=== PATIENT | female | born 1990 | race Caucasian/White ===

== ENCOUNTER → 2017-09-28 10:00 | Outpatient (CLI) | payer SELFPAY ==
[2017-09-28 11:02] LABS: Basophils % 0.1 % (0.1-2.0); Eosinophils # 0.2 K/mm3 (0.0-0.4); Hematocrit 33.2 % (37.0-47.0); Hemoglobin 11.1 g/dL (12.2-16.2); Lymphocytes # 1.3 K/mm3 (0.7-4.5); Lymphocytes % 16.1 K/mm3 (10-50); Mean Corpuscular HGB Conc 33.5 g/dL (31.8-35.4); Mean Corpuscular Hemoglobin 29.7 pg (27.0-31.2); Mean Corpuscular Volume 88.6 fl (81-99); Mean Platelet Volume 8.5 fl (7.4-10.4); Monocytes # 0.3 K/mm3 (0.1-1.0); Monocytes % 3.8 % (1.7-9.3); Neutrophils # 6.3 K/mm3 (1.8-7.8); Neutrophils % 78.1 % (37.0-80.0); Platelet Count 242 K/mm3 (142-424); Red Blood Count 3.75 M/mm3 (4.20-5.40); Red Cell Distribution Width 12.3 % (11.5-17.5); White Blood Count 8.1 K/mm3 (4.8-10.8)
[2017-09-29 08:28] LABS: HIV Screen 4th Generation wRfx Non Reactive (Non Reactive)
[2017-09-29 15:23] LABS: Hepatitis B Surface Antigen Negative (Negative); Hepatitis C Antibody <0.1 s/co ratio (0.0-0.9); Rapid Plasma Reagin Ab Titer Non Reactive (NonRea<1:1); Rubella Antibodies, IgG 3.85 index (Immune >0.99)
== END ==
PROVIDERS: PCP Nurse Practitioner Obstetrics & Gynecology; Visit Provider Nurse Practitioner Obstetrics & Gynecology
DX: Z34.90 Encounter for supervision of normal pregnancy, unspecified, unspecified trimester (principal)
CPT/HCPCS: 36415; 85025; 86592; 86703; 86762; 86850; 87340; 87380; G0432

== ENCOUNTER → 2017-10-02 13:19 | Outpatient (CLI) | payer MEDICAID, SELFPAY ==
--- NOTE | 2017-10-02 13:20 | US_ITS ---
US OB transvaginal HISTORY: ITS.REASON: US OB Dates ORDERING PHYSICIAN: Ede Vale MD PATIENT AGE: 27 years COMPARISON: None FINDINGS: An intrauterine gestational sac is present with a pole with a crown-rump length of 4.15 cm correlating to gestational age of 11w1d. heart tones are present with an FHR of 151 bpm's. Yolk sac is noted. The amnion and chorion have not yet fused. The placenta is anterior Adnexa: Unremarkable. IMPRESSION: Live intrauterine gestation at 11 weeks 1 day as described above. Estimated due date by ultrasound is 04/22/2018
== END ==
PROVIDERS: PCP Nurse Practitioner Obstetrics & Gynecology; Visit Provider Nurse Practitioner Obstetrics & Gynecology
DX: O26.841 Uterine size-date discrepancy, first trimester (principal)
CPT/HCPCS: 76830

== ENCOUNTER → 2017-11-02 09:39 | Outpatient (CLI) | payer MEDICAID, SELFPAY ==
[2017-11-06 23:07] LABS: AFP Value 36.2 ng/mL (.); DIA MoM 0.58 (.); DIA Value 102.81 pg/mL (.); DSR (Second Trimester) 1 IN 10000 (.); Gest. Age on Collection Date 15.6 WEEKS (.); OSBR Risk 1 IN 7603 (.); Results Report (.); hCG MoM 0.77 (.); hCG Value 33636 mIU/mL (.); uE3 MoM 1.23 (.); uE3 Value 0.84 ng/mL (.)
[2017-11-08 07:45] LABS: Gestat. Age Based On EDD (.)
== END ==
PROVIDERS: PCP Family Medicine; Visit Provider Nurse Practitioner Obstetrics & Gynecology
DX: Z34.90 Encounter for supervision of normal pregnancy, unspecified, unspecified trimester (principal)
CPT/HCPCS: 36415; 82106

== ENCOUNTER → 2017-12-04 10:01 | Outpatient (CLI) | payer MEDICAID, SELFPAY ==
--- NOTE | 2017-12-04 10:03 | US_ITS ---
US OB /maternal detail: INDICATION: ITS.REASON: US OB Complete ORDERING PHYSICIAN: Ede Vale MD PATIENT AGE: 27 years TECHNIQUE: ultrasound transabdominal scanning. COMPARISON: No previous relevant studies. FINDINGS: Single viable intrauterine gestation. Variable position. Placenta: Anterior placenta grade 1. There is average amount fluid. The cervix appears satisfactory. Closed and measuring 3.7 cm in length. Complete survey performed and was unremarkable on the submitted images as in PACS. No discrete anomalies identified on survey imaging by technologist. Active fetus. Three-vessel cord with satisfactory umbilical cord insertion. 4- chamber heart noted. Survey of brain & ventricles unremarkable. Face and neck survey unremarkable. Diaphragm and chest views unremarkable. Abdomen: Both kidneys noted and unremarkable. Stomach noted and satisfactory. Spine: Survey of the spine satisfactory with no anomalies identified nor imaged. Both arms and legs noted. Amniotic Fluid: Adequate. Maternal adnexa: No significant findings. Measurements: Average ultrasound age 20w1d. Gestational Age 20w1d. Estimated due date by ultrasound age 0304/22/2018. Estimated weight 328 grams. BPD = 20w1d OFD = 20w6d HC = 19w6d AC = 20w1d FL = 20w1d Growth Percentile= 39% Heart Rate = 146 bpm Cerebellum = 20w1d Humerus = 20w1d HC/AC is 1.16 (1.09-1.26). CI is 75% (70-86%). FL/BPD is 69%. FL/AC is 22%. IMPRESSION: There is a single live fetus present in variable presentation with an average ultrasound age of 20 weeks 1 day. No obvious anomalies. Estimated due date by ultrasound is 04/22/2018. Anterior placenta. Grade 1. No evidence of previa. Please see above for detail
== END ==
PROVIDERS: PCP Family Medicine; Visit Provider Nurse Practitioner Obstetrics & Gynecology
DX: Z36.0 Encounter for antenatal screening for chromosomal anomalies (principal)
CPT/HCPCS: 76811

== ENCOUNTER → 2018-01-31 07:25 | Outpatient (CLI) | payer SELFPAY ==
[2018-01-31 08:25] LABS: Glucose,Fasting 77 mg/dL (60-105)
[2018-01-31 09:10] LABS: Glucose 1 Hour 139 mg/dL (74-106)
== END ==
PROVIDERS: Visit Provider Nurse Practitioner Obstetrics & Gynecology
DX: Z34.90 Encounter for supervision of normal pregnancy, unspecified, unspecified trimester (principal)
CPT/HCPCS: 36415; 82951

== ENCOUNTER → 2018-02-09 07:58 | Outpatient (CLI) | payer SELFPAY ==
[2018-02-09 08:27] LABS: Glucose,Fasting 82 mg/dL (60-105)
[2018-02-09 09:38] LABS: Glucose 1 Hour 186 mg/dL (74-106)
[2018-02-09 10:29] LABS: Glucose 2 Hour 106 mg/dL (74-106)
[2018-02-09 12:11] LABS: Glucose 3 Hour 130 mg/dL (74-106)
== END ==
PROVIDERS: Visit Provider Nurse Practitioner Obstetrics & Gynecology
DX: Z34.90 Encounter for supervision of normal pregnancy, unspecified, unspecified trimester (principal)
CPT/HCPCS: 82951

== ENCOUNTER → 2018-03-22 13:56 | Outpatient (CLI) | payer SELFPAY | PROVIDERS: Visit Provider Nurse Practitioner Obstetrics & Gynecology | DX: Z34.90 Encounter for supervision of normal pregnancy, unspecified, unspecified trimester (principal); Z3A.35 35 weeks gestation of pregnancy | CPT/HCPCS: 86403 ==

== ENCOUNTER 2018-04-23 16:38 | Inpatient (IN) ==
[2018-04-23 17:18] LABS: Microscopic, Urine URINE MICROSCOPIC (MICROSCOPIC)
[2018-04-23 17:23] LABS: Appearance,Urine CLOUDY (Clear); Bilirubin,Urine Negative (Negative); Blood, Urine TRACE-I (Negative); Color,Urine YELLOW (Yellow); Glucose,Urine (UA) Negative (Negative); Ketones,Urine TRACE (Negative); Leukocyte Esterase,Urine Negative (Negative); Protein,Urine Negative (Negative); Specific Gravity, Urine >= 1.030 (1.005-1.030)
[2018-04-23 17:28] LABS: Basophils % 0.1 % (0.1-2.0); Eosinophils # 0.1 K/mm3 (0.0-0.4); Eosinophils % 0.9 % (0.1-12.0); Hematocrit 34.3 % (37.0-47.0); Hemoglobin 11.6 g/dL (12.2-16.2); Lymphocytes # 1.4 K/mm3 (0.7-4.5); Lymphocytes % 16.1 % (10-50); Mean Corpuscular HGB Conc 33.9 g/dL (31.8-35.4); Mean Corpuscular Hemoglobin 29.3 pg (27.0-31.2); Mean Corpuscular Volume 86.5 fl (81-99); Monocytes # 0.4 K/mm3 (0.1-1.0); Monocytes % 4.2 % (1.7-9.3); Neutrophils % 78.6 % (37.0-80.0); Platelet Count 249 K/mm3 (142-424); Red Blood Count 3.96 M/mm3 (4.20-5.40); Red Cell Distribution Width 13.4 % (11.5-17.5)
[2018-04-23 17:32] LABS: Bacteria,Urine 4+ /lpf; Squamous Epithelial Cell,Urine 20-50 #/hpf (0-5)
[2018-04-23 17:33] LABS: RBC,Urine Occasional #/hpf (0-3)
--- NOTE | 2018-04-24 08:10 | Progress Note ---
Labor Note - Subjective: Date: 04/24/18 Time: 08:09 regular contraction - Objective: NST:: Reactive Contractions:: every 2-3 minutes Cervical Dilation:: 2-3 Effacement:: 90% Station: -2 Membranes: artificially ruptured Comment:: Clear fluid - Fetus: Monitoring?: Yes monitoring type:: External - Assessment: Labor progressing?: Yes Cephalopelvic disproportion?: No Patient Problems: All Active Problems (Acute) - Plan: Anesthesia for epidural?: Yes Continue to labor down?: Yes Plan for ?: No Continue to monitor?: Yes Start pushing?: No
--- NOTE | 2018-04-24 08:53 | Progress Note ---
[facility] Anesthesia Checklist - Patient Identification Patient Identification: Arm Band, Verbal (Name & ) - Structural Data Admitted From: Inpatient Planned Operative Procedure/s: labor epidural Consent for Planned Operative Procedure(s) Verified: Yes - Chart Verification Results Verified: CBC - Additional verifications Patient : Yes Anesthesia Reactions: No Hx Blood Transfusions: No Blood Transfusion Reaction: No Cephalosporin Allergy: No Previous Colonoscopy: No - Cardiovascular Assessment Heart Sounds: S1 & S2 Pulse Strength: Baseline Pulse Rhythm: Regular Peripheral Edema: No - Airway Assessment C-Spine Mobility Assessed: Yes TMJ Mobility Assessed: Yes Dentition: Good Dentition - Neurological Assessment Level of Consciousness: Awake, Alert, Appropriate Hx Seizures: No Numbness or tingling in extremities: No - Anesthesia Plan Anesthesia Risk discussed: Yes Anesthesia Plan: Verified ASA Class: II Anesthesia Type: Epidural [facility] History I have reviewed the patient's past medical history: Yes Medical History: Reports:: Anxiety Denies:: Depression, Hyperlipidemia, Hypertension *Have you ever received a pneumonia vaccine?: No *Have you received a flu vaccine this season?: Yes Other Surgeries: Yes: Other. No: Amputation: No Fractures: No - *Social History Smoking Status: Former smoker Alcohol Intake: never Substance Use Type: denies use *Occupational Status:: employed Housing: house Household Members: family - Psychiatric History Pschychiatric History:: Reports:: Anxiety Denies:: Depression Family Hx:: No significant family history Para: 1
--- NOTE | 2018-04-24 09:45 | Progress Note ---
Labor Note - Subjective: Date: 04/24/18 Time: 09:44 regular contraction - Objective: NST:: Reactive Contractions:: every 2-3 minutes Cervical Dilation:: 3-4 Effacement:: 90% Station: -2 Membranes: artificially ruptured - Fetus: Monitoring?: Yes monitoring type:: Internal and External Comment:: I inserted an IUPC - Assessment: Labor progressing?: Yes Cephalopelvic disproportion?: No Patient Problems: All Active Problems (Acute) - Plan: Anesthesia for epidural?: Yes Continue to labor down?: Yes Plan for ?: No Continue to monitor?: Yes Start pushing?: No
--- NOTE | 2018-04-24 10:23 | Progress Note ---
Labor Note - Subjective: Date: 04/24/18 Time: 10:22 regular contraction - Objective: NST:: Reactive Contractions:: every 2-3 minutes Cervical Dilation:: 4 Effacement:: 90% Station: -2 Membranes: artificially ruptured - Fetus: Monitoring?: Yes monitoring type:: Internal Comment:: I inserted a scalp clip. She also has an IUPC. We will start an amnioinfusion - Assessment: Labor progressing?: Yes Cephalopelvic disproportion?: No Patient Problems: All Active Problems (Acute) - Plan: Anesthesia for epidural?: Yes Continue to labor down?: Yes Plan for ?: No Continue to monitor?: Yes Start pushing?: No Comment:: We will go ahead and start an amnioinfusion. I have a clip on as well as an IUPC.
--- NOTE | 2018-04-24 11:04 | Progress Note ---
Internal Medicine - PN: Subj *Date: 04/24/18 (N) *Time: 11:02 Interval history: She has had 3 prolonged decelerations now. She has been having irregular contractions. We did start her on some oxytocin and she continued to have these large decelerations. We will go ahead with a . Exam Vital signs and Labs for Last 24 Hours: Temp Pulse Resp BP Pulse Ox 98.1 F 88 16 139/88 98 04/23/18 17:19 04/23/18 17:19 04/23/18 17:19 04/23/18 20:41 04/23/18 17:19 Laboratory Results - last 24 hr 04/23/18 17:15: WBC 9.0, RBC 3.96 L, Hgb 11.6 L, Hct 34.3 L, MCV 86.5, MCH 29.3, MCHC 33.9, RDW 13.4, Plt Count 249, MPV 9.0, Neut % (Auto) 78.6, Lymph % (Auto) 16.1, [place] % (Auto) 4.2, Eos % (Auto) 0.9, Baso % (Auto) 0.1, Neut # (Auto) 7.0, Lymph # (Auto) 1.4, [place] # (Auto) 0.4, Eos # (Auto) 0.1, Baso # (Auto) 0.0 04/23/18 17:15: Urine Color Yellow, Urine Appearance Cloudy, Urine pH 6.0, Ur Specific [place] >= 1.030, Urine Protein Negative, Urine Glucose (UA) Negative, Urine Ketones Trace, Urine Blood Trace-i, Urine Nitrate Negative, Urine Bilirubin Negative, Urine Urobilinogen 1.0, Ur Leukocyte Esterase Negative, Urine RBC Occasional, Urine WBC 10-20, Ur Squamous Epith Cells 20-50, Urine Bacteria 4+ 04/23/18 17:15: Blood Type A Positive, Antibody Screen Negative I & O for Last 24 hours: Intake & Output 04/21/18 04/22/18 04/23/18 04/24/18 11:59 11:59 11:59 11:59 Weight 182 lb 0.006 oz Assessment and Plan (1) heart rate/rhythm abnormality in labor and delivery, antepartum Current visit: Yes Status: Acute Category: Medical Code(s): O36.8390 - Maternal care for abnormalities of the heart rate or rhythm, unspecified trimester, not applicable or unspecified (2) heart rate/rhythm abnormality in labor and delivery, delivered Current visit: Yes Status: Acute Category: Medical Code(s): O76 - Abnormality in heart rate and rhythm complicating labor and delivery - Assessment and plan all Dx Assessment and Plan for all problems:: We will go ahead with a section. Her cervix is still 4-5 cm. She has had these 3 prolonged decelerations spite the fact that she has an amnioinfusion. We have tried flipping her from side to side. We discussed the risks of surgery that includes bleeding, infection, injury to the bowel and bladder. We discussed the rare risk of DVT. All questions were answered and consents were signed.
--- NOTE | 2018-04-24 12:11 | Operative Note ---
Date of procedure: 04/24/18 Pre-op Diagnosis:: Post term , nonreassuring heart rate tracing with decelerations, Post-op Diagnosis:: Post term , nonreassuring heart rate tracing with decelerations, nuchal cord, uterine atony Procedure performed:: Primary lower segment transverse section Surgeon:: Ede Vale MD Warehouser(s):: Svetlana Cortes INSTRUMENTATION TECH:: Juve Tolentino Anesthesia: epidural Estimated blood loss (mL): 1,000 Clinical Note:: She is a 28-year-old 1 now para 0 at 40 and 2 weeks gestational age. She was brought in on the evening of 23 April 2018 postdates. She was started on Cervidil. On the morning of the she had her membranes ruptured and was started on IV oxytocin. She progressed to 4 cm dilated but began having multiple decelerations. They lasted about 2-3 minutes. We tried an amnioinfusion and despite this she continued to have these decelerations randomly. As result of that we elected to perform a primary lower segment transverse section. The risks and benefits of surgery were discussed with the patient and her boyfriend prior to surgery. Operative findings:: She delivered a liveborn female child at 11:35 AM on the morning of April 24, 2018. Baby had Apgars of 9 at 1 minute and 10 at 5 minutes. PH was 7.31. There was a nuchal cord. The uterus was quite boggy post surgery and she did require a B-Dubon suture ovaries and tubes appeared normal. Operative note:: She was taken to the operating room where epidural anesthesia was found be adequate. She was prepped and draped in normal sterile fashion in the supine position with a leftward tilt. A Arteaga catheter was in the bladder. A Pfannenstiel skin incision was made with knife then carried through to the underlying layer of fascia with cautery. The fascia was opened in the midline with cautery and extended laterally using Mayer scissors. [place] clamps were applied to the superior aspect of the fascial incision which was tented up and the underlying rectus muscles dissected off using Mayer scissors. The [place] clamps were then applied to the inferior aspect of the fascial incision which in a similar fashion was tented up and the underlying rectus muscles dissected off using Mayer scissors. The rectus muscles were then in the midline, the peritoneum identified, and entered sharply with Metzenbaum scissors. This incision was then extended superiorly and inferiorly with scissors. We had good visualization of the bladder inferiorly. The bladder peritoneum was then opened in the midline and extended laterally using Metzenbaum scissors. A bladder flap was created digitally. The lower blade of the [place] was then inserted to push the bladder out of the way. Transverse incision was made through the uterine muscle to the amnion. This incision was then extended laterally using fingers traction. The amnion was entered sharply with knife. The 's head was then delivered atraumatically. A loose nuchal cord was then reduced. This was followed by the anterior shoulder and the rest of the 's body atraumatically. The oropharynx and nasopharynx were bulb suctioned. The was then handed off to Dr. Mcclellan who assigned Apgars of 9 at 1 minute and 10 at 5 minutes. We then obtained cord blood as well as cord pH. The pH was 7.31. Using gentle traction on the cord and countertraction on the fundus I was able to easily deliver the placenta intact. It had a normal three-vessel cord. The uterus was then cleared of clots and debris . The uterine incision was then closed using running 0 Vicryl suture in a locked fashion. A second layer of the same suture was used to imbricate the first layer. The bladder peritoneum was then closed using running 2-0 Vicryl suture in a locked fashion. The gutters and cul-de-sac were then cleared of clots and debris . Once again hemostasis was assured. The uterus is still quite boggy so we elected to perform a B Dubon suture. Using #1 Vicryl suture I took a large bite anteriorly and then went over posteriorly. I then took 2 bites posteriorly and once again brought the suture back again anteriorly and took one more bite. The suture was cinched down and tied making sure that we avoided the fallopian tubes. Once again hemostasis was assured and the uterus was returned to the abdominal cavity. Prior to returning the uterus to the abdominal cavity I placed a large piece of Surgicel over the posterior uterus where I had placed the B Dubon sutures. The peritoneum was grasped with Mony clamps and closed using running 2-0 Vicryl suture. The rectus muscles were then reapproximated using running 0 Vicryl suture. The fascia was closed using running #1 Vicryl suture. The subcutaneous tissues were then irrigated with warm water followed by closure Jed's fascia using running 2-0 Monocryl suture. The skin was closed with kel. I then cleaned the skin with Hibiclens. Sterile dressings were applied. She tolerated the procedure well and was taken to the recovery room in excellent condition. All sponges minute and needle counts were correct. Estimate a blood loss was approximately 1000 mL. Condition: stable Disposition: PACU Specimens:: Products of conception Complications:: None
--- NOTE | 2018-04-24 12:14 | Progress Note ---
[facility] Anesthesia Record Part II Discharge Time: 12:42 Destination: Obstetric PACU nurse assessment reviewed?: Yes Patient Condition:: Good Anesthesia Complications:: None Swallowing reflex intact?: Yes Cyanosis?: No
--- NOTE | 2018-04-24 12:14 | Progress Note ---
[facility] Anesthesia Record Part I Intake, IV Amount: 1,550 Estimated blood loss (mL): 1,000 Urine output (mL): 450 Blood Products used (#): none Blood Pressure: 137/81 SaO2: 97 Pulse Rate: 91 Respiratory Rate: 20 Temperature: 98.6 F Patient is:: Awake, Stable Stable to PACU at:: 12:12
[2018-04-25 07:49] LABS: Basophils % 0.1 % (0.1-2.0); Eosinophils # 0.1 K/mm3 (0.0-0.4); Eosinophils % 0.5 % (0.1-12.0); Hematocrit 25.9 % (37.0-47.0); Hemoglobin 8.6 g/dL (12.2-16.2); Lymphocytes # 1.5 K/mm3 (0.7-4.5); Lymphocytes % 15.3 % (10-50); Mean Corpuscular HGB Conc 33.2 g/dL (31.8-35.4); Mean Corpuscular Hemoglobin 29.6 pg (27.0-31.2); Mean Corpuscular Volume 89.3 fl (81-99); Mean Platelet Volume 8.8 fl (7.4-10.4); Monocytes # 0.4 K/mm3 (0.1-1.0); Neutrophils # 7.8 K/mm3 (1.8-7.8); Neutrophils % 80.1 % (37.0-80.0); Platelet Count 188 K/mm3 (142-424); Red Cell Distribution Width 13.6 % (11.5-17.5); White Blood Count 9.8 K/mm3 (4.8-10.8)
--- NOTE | 2018-04-25 08:36 | Progress Note ---
Internal Medicine - PN: Subj *Date: 04/25/18 *Time: 08:35 Interval history: She is doing well this morning. She is eating and drinking and ambulating. She is breast-feeding. Her lochia is normal. Her hemoglobin is 8.6. She is otherwise asymptomatic with respect to her lower hemoglobin. Exam Vital signs and Labs for Last 24 Hours: Temp Pulse Resp BP Pulse Ox 98.5 F 88 20 147/92 H 97 04/24/18 12:42 04/24/18 12:42 04/24/18 12:42 04/24/18 12:42 04/24/18 12:42 Laboratory Results - last 24 hr 04/24/18 11:40: Cord ABG pH 7.31 L 04/25/18 06:30: WBC 9.8, RBC 2.90 L D, Hgb 8.6 L, Hct 25.9 L, MCV 89.3, MCH 29.6, MCHC 33.2, RDW 13.6, Plt Count 188, MPV 8.8, Neut % (Auto) 80.1 H, Lymph % (Auto) 15.3, [place] % (Auto) 4.0, Eos % (Auto) 0.5, Baso % (Auto) 0.1, Neut # (Auto) 7.8, Lymph # (Auto) 1.5, [place] # (Auto) 0.4, Eos # (Auto) 0.1, Baso # (Auto) 0.0 I & O for Last 24 hours: Intake & Output 04/22/18 04/23/18 04/24/18 04/25/18 11:59 11:59 11:59 11:59 Intake Total 5620 / 5620 Output Total 1600 / 1600 Balance 4020 / 4020 Weight 182 lb 0.006 oz Microbiology Reports for the Last 24 Hours: Microbiology 04/23/18 17:15 Urine,Clean Catch Urine Culture - Preliminary NO GROWTH AFTER 24 HOURS Assessment and Plan (1) heart rate/rhythm abnormality in labor and delivery, antepartum Current visit: Yes Status: Acute Category: Medical Code(s): O36.8390 - Maternal care for abnormalities of the heart rate or rhythm, unspecified trimester, not applicable or unspecified (2) heart rate/rhythm abnormality in labor and delivery, delivered Current visit: Yes Status: Acute Category: Medical Code(s): O76 - Abnormality in heart rate and rhythm complicating labor and delivery - Assessment and plan all Dx Assessment and Plan for all problems:: She is doing well this morning. We will plan to send her home in 48 hours.
--- NOTE | 2018-04-25 10:42 | Pharmacy Consult Notes ---
[facility] Pharmacy VTE Monitoring - Patient Demographics Admission date: 04/23/18 Report Date: 04/25/18 Time: 10:42 Allergies/Adverse Reactions: Patient Allergies diphenhydramine [From BENADRYL] Allergy (Unknown, Verified 04/23/18 11:08) Height: 1.52 cm Weight: 82.554 kg Patient Problems: Current Active Problems heart rate/rhythm abnormality in labor and delivery, antepartum (Acute) heart rate/rhythm abnormality in labor and delivery, delivered (Acute) - VTE Risk Labs: VTE Related Lab Results Hgb 8.6 g/dL (12.2-16.2) L 04/25/18 06:30 Hct 25.9 % (37.0-47.0) L 04/25/18 06:30 Plt Count 188 K/mm3 (142-424) 04/25/18 06:30 - Prophylaxis VTE Prophylaxis Ordered?: Yes Types of VTE Prophylaxis: IPCS Thigh High Location of Applied Device: Bilateral Lower Extremeties
--- NOTE | 2018-04-26 08:25 | Progress Note ---
Internal Medicine - PN: Subj *Date: 04/26/18 *Time: 08:21 Interval history: She is doing well today. She is eating and drinking and ambulating. She is breast-feeding. Her lochia is normal. Exam Vital signs and Labs for Last 24 Hours: Temp Pulse Resp BP Pulse Ox 98.5 F 88 20 147/92 H 97 04/24/18 12:42 04/24/18 12:42 04/24/18 12:42 04/24/18 12:42 04/24/18 12:42 I & O for Last 24 hours: Intake & Output 04/23/18 04/24/18 04/25/18 04/26/18 11:59 11:59 11:59 11:59 Intake Total 5620 / 5620 Output Total 1600 / 1600 Balance 4020 / 4020 Weight 182 lb 0.006 oz 182 lb 0.006 oz Microbiology Reports for the Last 24 Hours: Microbiology 04/23/18 17:15 Urine,Clean Catch Urine Culture - Final NO GROWTH AFTER 48 HOURS - Constitutional no acute distress Assessment and Plan (1) heart rate/rhythm abnormality in labor and delivery, antepartum Current visit: Yes Status: Acute Category: Medical Code(s): O36.8390 - Maternal care for abnormalities of the heart rate or rhythm, unspecified trimester, not applicable or unspecified (2) heart rate/rhythm abnormality in labor and delivery, delivered Current visit: Yes Status: Acute Category: Medical Code(s): O76 - Abnor mality in heart rate and rhythm complicating labor and delivery - Assessment and plan all Dx Assessment and Plan for all problems:: She is doing well this morning. We will plan to send her home tomorrow.
[2018-04-26 20:20] VITALS: BP 120/79
--- NOTE | 2018-04-27 09:36 | Discharge Summary ---
General - General Admission date:: 04/23/18 Discharge date: 04/27/18 HPI HPI: She is a 28-year-old 2 now para 1 aborta 1 who was 40+ weeks gestational age. She was brought in for induction of labor. Hospital Course Hospital Course: She had Cervidil placed overnight and the following morning was found to be 2 cm dilated. She was started on IV oxytocin and had her membranes ruptured. Under labor epidural she progressed to about 4-5 cm and was having multiple decelerations. They were becoming more prolonged. So we elected to perform a primary lower segment transverse section. On April 24, 2018 she underwent a primary lower segment transverse section delivered a liveborn female child at 11:35 AM. The baby weighed 7 pounds 14 ounces and had Apgars of 9 at 1 minute and 10 at 5 minutes. She has done well postoperatively and has remained afebrile throughout her hospitalization. She is eating and drinking and ambulating. She is breast- feeding. She has a positive blood, she is rubella immune and was group B stopcock is negative. Her glove pairer is Dr. Kimble. She will be discharged home to follow-up with me in approximately 2 weeks time. She was given a prescription for Percocet 5/325, 30 tablets. She will also take ibuprofen, vitamins and iron. Rhogam Administration: Not Indicated Objective Vital signs: Temp Pulse Resp BP Pulse Ox 98.6 F 88 18 120/79 98 04/26/18 19:31 04/26/18 19:31 04/26/18 19:31 04/26/18 19:31 04/26/18 19:31 no acute distress DS: Diagnosis - Discharge Diagnosis (1) heart rate/rhythm abnormality in labor and delivery, antepartum Status: Acute (2) heart rate/rhythm abnormality in labor and delivery, delivered Status: Acute Discharge Plan - Patient Discharge Instructions ACTIVITY: No heavy lifting DIET: continue same diet Additional Instructions: No heavy lifting, no strenuous activity and nothing in the vagina for 6 weeks. Patient Instructions: How to Care for a Surgical Wound, Depression, Hemorrhage, DI for Postoperative Pain, [facility] Post Discharge Instructions - Follow up Plan Follow up with: Ede Vale MD [Primary Care Provider] - Disposition: Home, Self-Jail Medications: Home Medications Medication Instructions Recorded Confirmed Type 1 tab PO DAILY 11/18/17 04/24/18 History vitamin,calcium,eemayoqh-oqjv-rylzu acid tablet promethazine 12.5 mg tablet 12.5 mg PO Q6H PRN #30 tab 04/12/18 04/24/18 Rx Ferrous Sulfate 325 mg PO DAILY 04/24/18 04/24/18 History Ibuprofen [Motrin 400mg 400 mg PO Q4HP PRN #40 tab 04/27/18 Rx tablet] Oxycodone HCl/Acetaminophen 1 - 2 tab PO Q4-6H PRN #30 tab 04/27/18 Rx [Percocet 5/325mg tablet] Prescriptions/Medication Reconciliation: New Oxycodone HCl/Acetaminophen [Percocet 5/325mg tablet] 1 - 2 tab PO Q4-6H PRN #30 tab PRN Reason: Severe Pain Ibuprofen [Motrin 400mg tablet] 400 mg PO Q4HP PRN #40 tab PRN Reason: Moderate Pain No Action vitamin,calcium,skxlthnz-meuv-cqzoq acid tablet 1 tab PO DAILY promethazine 12.5 mg tablet 12.5 mg PO Q6H PRN #30 tab PRN Reason: nausea and vomiting Ferrous Sulfate 325 mg PO DAILY
== END 2018-04-27 14:10 | disposition home or self-care (01) | DRG 788 ==
LOC: OB 16:38
PROVIDERS: ADMIT Nurse Practitioner Obstetrics & Gynecology; ATTEND Nurse Practitioner Obstetrics & Gynecology
CPT/HCPCS: 36415; 59025; 81001; 82800; 85025; 86850; 87086; 94761; C1758; J0595

== ENCOUNTER → 2019-05-29 10:24 | Outpatient (CLI) | payer OTHER, SELFPAY ==
--- NOTE | 2019-05-29 10:26 | US_ITS ---
PROCEDURE: US OB >= 14 WK FETUS ADD GEST CLINICAL INDICATION: for dates Evaluate for dates COMPARISON: OBFEMAT US OB /maternal detail from 12/04/2017 FINDINGS: There is a single live fetus present which is in cephalic presentation. heart and body motion noted. Average ultrasound age is 16 weeks 2 days. Following parameters are obtained: BPD 16 weeks 2 days, OFD 16 weeks 4 days, HC 16 weeks 0 days, AC 16 weeks 3 days, FL 16 weeks 0 days. heart tones are present 147 beats per minute. [place] P[place]rez contraction noted. Placenta is anterior. The cervix is closed measuring 4 cm transabdominal. IMPRESSION: Live IUP at 16 weeks 2 days. This does not constitute an anatomy exam which should be performed at 20 weeks. Estimated due date by Ultrasound is 11/11/2019 Dictated by: Yvon Peacock MD 05/29/2019 13:54 Electronically signed by Yvon Peacock MD in [facility] 05/29/2019 13:54
== END ==
PROVIDERS: PCP Family Medicine; Visit Provider Nurse Practitioner Obstetrics & Gynecology
DX: Z34.90 Encounter for supervision of normal pregnancy, unspecified, unspecified trimester (principal)
CPT/HCPCS: 76810; 76817

== ENCOUNTER → 2019-06-27 14:40 | Outpatient (CLI) | payer OTHER, SELFPAY ==
--- NOTE | 2019-06-27 14:40 | US_ITS ---
PROCEDURE: US OB /MATERNAL DETAIL CLINICAL INDICATION: 20 week gestation of Anatomy exam COMPARISON: US OB TRANSVAGINAL from 05/29/2019 FINDINGS: There is a single live fetus present in cephalic presentation. The placenta is anterior. The cervix is closed measuring 5 cm transabdominal. Placenta is grade 1. There is an average appearing amount of amniotic fluid. Complete survey performed and was unremarkable on the submitted images as in PACS. No discrete anomalies identified on survey imaging by technologist. Active fetus. Three-vessel cord with satisfactory umbilical cord insertion. 4- chamber heart noted. Survey of brain & ventricles Unremarkable. Face and neck survey unremarkable. Diaphragm and chest views unremarkable. Abdomen: Both kidneys noted and unremarkable. Stomach noted and satisfactory. Spine: Survey of the spine satisfactory with no anomalies identified nor imaged. Both arms and legs noted. Amniotic Fluid: Adequate. Maternal adnexa: No significant findings. Measurements: Average ultrasound age 20weeks 3days. Gestational Age 20 weeks 4 days Estimated due date by ultrasound age 0911/11/2019. Estimated weight 363g BPD = 20weeks 3days OFD = 20 weeks 3 days HC = 19weeks 5days AC = 20weeks 4days FL = 21weeks Growth Percentile= 40% Heart Rate = 143bpm Cerebellum = 20weeks 1day Humerus = 20weeks 4days HC/AC is 1.12 CI is 0.79 FL/BPD is 0.73 FL/AC is 0.23 IMPRESSION: There is a live intrauterine gestation which is in cephalic presentation with an average ultrasound age 20 weeks and 3 days. All parameters correlate. No obvious anomalies. Please see above for detail Dictated by: Yvon Peacock MD 06/27/2019 16:27 Electronically signed by Yvon Peacock MD in [place] 06/27/2019 16:27
== END ==
PROVIDERS: PCP Family Medicine; Visit Provider Nurse Practitioner Obstetrics & Gynecology
DX: Z36.0 Encounter for antenatal screening for chromosomal anomalies (principal)
CPT/HCPCS: 76811

== ENCOUNTER → 2019-07-17 16:36 | Outpatient (CLI) | payer OTHER, SELFPAY ==
[2019-07-17 18:27] LABS: Basophils % 0.4 % (0.1-2.0); Eosinophils # 0.2 K/mm3 (0.0-0.4); Eosinophils % 1.9 % (0.1-12.0); Hematocrit 31.7 % (37.0-47.0); Hemoglobin 10.9 g/dL (12.2-16.2); Lymphocytes # 1.7 K/mm3 (0.7-4.5); Mean Corpuscular HGB Conc 34.5 g/dL (31.8-35.4); Mean Corpuscular Hemoglobin 30.6 pg (27.0-31.2); Mean Corpuscular Volume 88.6 fl (81-99); Mean Platelet Volume 8.3 fl (7.4-10.4); Monocytes # 0.5 K/mm3 (0.1-1.0); Monocytes % 5.2 % (1.7-9.3); Neutrophils % 74.6 % (37.0-80.0); Platelet Count 227 K/mm3 (142-424); Red Blood Count 3.58 M/mm3 (4.20-5.40); Red Cell Distribution Width 13.4 % (11.5-17.5); White Blood Count 9.4 K/mm3 (4.8-10.8)
[2019-07-19 07:27] LABS: HIV Screen 4th Generation wRfx Non Reactive (Non Reactive)
[2019-07-19 08:18] LABS: Rapid Plasma Reagin Ab Titer Non Reactive (NonRea<1:1)
[2019-07-19 20:31] LABS: Hepatitis B Surface Antigen Negative (Negative); Hepatitis C Antibody <0.1 s/co ratio (0.0-0.9); Rubella Antibodies, IgG 3.73 index (Immune >0.99)
== END ==
PROVIDERS: Visit Provider Nurse Practitioner Obstetrics & Gynecology
DX: Z34.90 Encounter for supervision of normal pregnancy, unspecified, unspecified trimester (principal)
CPT/HCPCS: 36415; 85025; 86592; 86703; 86762; 86850; 87340; 87380; G0432

== ENCOUNTER → 2019-08-15 08:54 | Outpatient (CLI) | payer OTHER, SELFPAY ==
[2019-08-15 14:00] LABS: Glucose,Fasting 84 mg/dl (74-100)
[2019-08-15 15:41] LABS: Glucose 1 Hour 166 mg/dL (74-100)
== END ==
PROVIDERS: Visit Provider Nurse Practitioner Obstetrics & Gynecology
DX: O99.814 Abnormal glucose complicating childbirth (principal)
CPT/HCPCS: 36415; 82951

== ENCOUNTER → 2019-10-09 12:49 | Outpatient (CLI) | payer OTHER, SELFPAY ==
--- NOTE | 2019-10-09 13:02 | US_ITS ---
PROCEDURE: US OB BIOPHYSICAL PROFILE CLINICAL INDICATION: sga Small for gestational age TECHNIQUE: FINDINGS: There is a single live fetus which is in cephalic presentation. heart and body motion noted. The cervix is closed and measures 3 cm. The placenta is anterior and grade 2-3. The following parameters are obtained: Average ultrasound age is Average 35weeks 1day Estimated due date by ultrasound is 11/12/2019. Estimated weight is 2,601g. BPD: 8.76cm OFD: 10.96cm HC: 31.2cm AC: 31.4cm FL: 6.7cm heart rate: 152bpm bpm. HC/AC: 0.99 Cephalic index: 0.8 FL/BPD: 0.77 FL/AC: 0.21 Amniotic fluid index: 15.03cm Qualitative AFV: 2 breathing movements: 2 Gross body movements: 2 Tone: 2 Biophysical profile score: 8 IMPRESSION: Live IUP with an average ultrasound age 35 weeks 1 day. Estimated weight is 2601 g which is 48th percentile.. Please see above for detailed description Biophysical profile 8 of 8. Normal amniotic fluid volume. Anterior placenta grade 2-3 Dictated by: Yvon Peacock MD 10/10/2019 09:08 Yvon Peacock MD in [place] 10/10/2019 09:08
== END ==
PROVIDERS: PCP Family Medicine; Visit Provider Nurse Practitioner Obstetrics & Gynecology
DX: O36.5990 Maternal care for other known or suspected poor fetal growth, unspecified trimester, not applicable or unspecified (principal)
CPT/HCPCS: 76816; 76819

== ENCOUNTER → 2019-10-14 16:12 | Outpatient (CLI) | payer OTHER, SELFPAY | PROVIDERS: Visit Provider Nurse Practitioner Obstetrics & Gynecology | DX: Z34.90 Encounter for supervision of normal pregnancy, unspecified, unspecified trimester (principal); Z3A.36 36 weeks gestation of pregnancy | CPT/HCPCS: 86403 ==

== ENCOUNTER 2019-11-04 05:22 | Inpatient (IN) | payer OTHER, SELFPAY ==
[2019-11-04] VITALS (15 sets, daily range): BP systolic 102–158; BP diastolic 58–79; PULSE 60–78; RESP 12–20; TEMP 36.4–36.8; O2SAT 94–99; BMI 33.5
[2019-11-04 06:06] LABS: Microscopic, Urine URINE MICROSCOPIC (MICROSCOPIC)
[2019-11-04 06:20] LABS: Appearance,Urine CLEAR (Clear); Bilirubin,Urine Negative (Negative); Blood, Urine 1+ (Negative); Color,Urine YELLOW (Yellow); Glucose,Urine (UA) Negative (Negative); Ketones,Urine Negative (Negative); Leukocyte Esterase,Urine Negative (Negative); Nitrate,Urine Negative (Negative); Protein,Urine Negative (Negative); Specific Gravity, Urine 1.025 (1.005-1.030)
[2019-11-04 06:33] LABS: Barbiturates Screen,Urine Negative ng/ml (<200)
[2019-11-04 06:34] LABS: Benzodiazepines Screen,Urine Negative ng/ml (<200)
[2019-11-04 06:35] LABS: Amphetamine/Metha Screen,Urine Negative ng/ml (<1000); Methadone Screen,Urine Negative ng/ml (<300)
[2019-11-04 06:36] LABS: Cannabinoid Screen,Urine Negative ng/ml (<50); Chloride 108 mmol/L (98-107); Sodium 134 mmol/L (136-145)
[2019-11-04 06:37] LABS: Cocaine Screen,Urine Negative ng/ml (<300); Opiate Screen,Urine Negative ng/ml (<300)
[2019-11-04 06:38] LABS: Phencyclidine Screen,Urine Negative ng/ml (<25)
[2019-11-04 06:39] LABS: Blood Urea Nitrogen 9 mg/dl (7-17); Creatinine Clearance Estimated 207 mL/min (50-200); Estimated Glomerular Filt Rate 148 ml/min (>60); GFR (African American) 179 ML/MIN (>60)
[2019-11-04 06:40] LABS: Calcium 8.6 mg/dl (8.4-10.2); Carbon Dioxide 19 mmol/L (22.0-30.0); Glucose 88 mg/dl (74-100)
[2019-11-04 06:43] LABS: Basophils % 0.1 % (0.1-2.0); Eosinophils # 0.1 K/mm3 (0.0-0.4); Hematocrit 31.9 % (37.0-47.0); Hemoglobin 11.4 g/dL (12.2-16.2); Lymphocytes # 2.1 K/mm3 (0.7-4.5); Lymphocytes % 21.6 % (10-50); Mean Corpuscular HGB Conc 35.8 g/dL (31.8-35.4); Mean Corpuscular Hemoglobin 31.5 pg (27.0-31.2); Mean Corpuscular Volume 87.8 fl (81-99); Mean Platelet Volume 8.3 fl (7.4-10.4); Monocytes # 0.6 K/mm3 (0.1-1.0); Monocytes % 5.6 % (1.7-9.3); Neutrophils # 7.1 K/mm3 (1.8-7.8); Neutrophils % 71.7 % (37.0-80.0); Platelet Count 249 K/mm3 (142-424); Red Blood Count 3.64 M/mm3 (4.20-5.40); Red Cell Distribution Width 13.5 % (11.5-17.5); White Blood Count 9.8 K/mm3 (4.8-10.8)
[2019-11-04 07:04] LABS: Coronavirus 19 IgG Antibody Negative (Negative)
[2019-11-04 07:05] LABS: Coronavirus 19 IgM Antibody Negative (Negative)
--- NOTE | 2019-11-04 07:13 | HMH.ANESCL ---
[facility] Anesthesia Checklist - Patient Identification Patient Identification: Arm Band, Verbal (Name & ) - Structural Data Admitted From: Home Planned Operative Procedure/s: Repeat C/S Consent for Planned Operative Procedure(s) Verified: Yes Verified Documents: Surgical Consent, History and Physical - NPO Status Verified Time NPO: 00:00 - Chart Verification Results Verified: CBC, BMP - Additional verifications Patient : Yes Anesthesia Reactions: No Hx Blood Transfusions: No Blood Transfusion Reaction: Yes - Airway Assessment C-Spine Mobility Assessed: Yes TMJ Mobility Assessed: Yes Dentition: Good Dentition - Neurological Assessment Level of Consciousness: Awake, Alert, Appropriate, Follows Commands Hx Seizures: No Numbness or tingling in extremities: No - Anesthesia Plan Anesthesia Risk discussed: Yes Anesthesia Plan: Verified ASA Class: II Anesthesia Type: Spinal [facility] History I have reviewed the patient's past medical history: Yes Medical History: Reports:: Gastroesophageal Reflux Disease(GERD) ( induced) Denies:: Depression, Hypertension, Seizures *Have you ever received a pneumonia vaccine?: No *Have you received a flu vaccine this season?: Yes Other Medical History: Reports: Blood Transfusion Reaction Anesthesia experience/problems:: No prior complications Other Surgeries: Yes: , Other Amputation: No Fractures: No - *Social History Smoking Status: Never smoker Alcohol Intake: never Alcohol Intake Frequency:: other Substance Use Type: denies use *Occupational Status:: unemployed Housing: house Household Members: family *Travel in the last 8 weeks: None - Psychiatric History Pschychiatric History:: Reports:: Anxiety Denies:: Depression Family Hx:: No significant family history Para: 1
--- NOTE | 2019-11-04 07:20 | HMH.PHAINT ---
MEDICATION RECONCILIATION COMPLETED ON PATIENT USING EXTERNAL FILL HISTORY FROM PHARMACY. -JJ LAURENT, DESTINYD
--- NOTE | 2019-11-04 07:23 | HMH.OBAPHP ---
OB - H&P: HPI Antepartum - History of Present Illness Chief complaint: Term , previous section History of present illness: She is a 29-year-old 2 para 1 at 39+ weeks gestational age. She has had a previous section and as result of that is offered repeat lower segment transverse section at term. - History of Present Criteria for establishing EDC:: LMP confirmed by 1st trimester US care: good care Ultrasounds: normal 1st trimester US, normal mid trimester US Obstetrical complications: none Medical complications: none - Labs Rubella: immune RPR/VDRL: nonreactive GBS status: negative HBsAG: negative [facility] History I have reviewed the patient's past medical history: Yes Medical History: Reports:: Anxiety, Gastroesophageal Reflux Disease(GERD) ( induced), Hyperlipidemia Denies:: Depression, Hypertension, Seizures *Have you ever received a pneumonia vaccine?: No *Have you received a flu vaccine this season?: Yes Other Medical History: Reports: Blood Transfusion Reaction Anesthesia experience/problems:: No prior complications Other Surgeries: Yes: , Other Amputation: No Fractures: No - *Social History Smoking Status: Never smoker Alcohol Intake: never Alcohol Intake Frequency:: other Substance Use Type: denies use *Occupational Status:: unemployed Housing: house Household Members: family *Travel in the last 8 weeks: None - Psychiatric History Pschychiatric History:: Reports:: Anxiety Denies:: Depression Family Hx:: No significant family history Para: 1 Review of Systems - Review of Systems Review of systems:: pertinent systems reviewed and negative unless documented below Meds Home Medications Medication Instructions Recorded Confirmed Type prenat.vits,serena,[id number] 1 tab PO DAILY 05/22/19 11/04/19 History RX: Famotidine [Acid Home Theater Expert] 20 mg PO DAILY 11/04/19 11/04/19 History RX: Ferrous Sulfate 325 mg PO DAILY 11/04/19 11/04/19 History Allergies Allergy/AdvReac Type Severity Reaction Status Date / Time diphenhydramine Allergy Unknown Verified 10/29/19 14:44 [From BENADRYL] OB - H&P: Exam - Physical Exam Vital signs: Temp Pulse Resp BP Pulse Ox 98.2 F 77 18 116/72 99 11/04/19 06:07 11/04/19 06:07 11/04/19 06:07 11/04/19 06:07 11/04/19 06:07 - Constitutional no acute distress - Routine HEENT Exam Head: Present: normocephalic Eye: Present: EOMI, PERRL ENT: Present: mucous membranes moist - Routine Neck Exam Present: supple, full ROM - Routine Respiratory Exam Absent: accessory muscle use (good air entry bilaterally), respiratory distress, wheezes, crackles - Routine Cardiovascular Exam Present: RRR. Absent: murmur - Routine Abdominal Exam Present: soft, normoactive bowel sounds. Absent: tenderness, distended, guarding - Routine Rectal Exam Patient deferred: visual exam, digital exam - Routine Exam Patient deferred: external exam, groin exam, perineal exam - Routine Extremities Exam Present: full ROM. Absent: cyanosis, edema - Routine Skin Exam Present: intact. Absent: cyanosis - Routine Neurological Exam Present: alert, oriented X3 - Routine Psychiatric Exam Present: normal affect OB - Results - Labs Labs: Short CBC 11/04/19 Range/Units 05:50 WBC 9.8 (4.8-10.8) K/mm3 Hgb 11.4 L (12.2-16.2) g/dL Hct 31.9 L (37.0-47.0) % Plt Count 249 (142-424) K/mm3 BMP 11/04/19 05:50 Sodium 134 L Potassium 4.0 Chloride 108 H Carbon Dioxide 19 L BUN 9 Creatinine 0.50 L Glucose 88 Calcium 8.6 Urine 11/04/19 Range/Units 05:50 Urine Color Yellow (Yellow) Urine Appearance Clear (Clear) Urine pH 6.0 (5.0-8.5) Ur Specific [place] 1.025 (1.005-1.030) Urine Protein Negative (Negative) Urine Glucose (UA) Negative (Negative) OB - A/P Antepartum (1) Previous sectio
[2019-11-04 08:09] LABS: Cord Blood PH 7.35 (7.35-7.45)
--- NOTE | 2019-11-04 08:12 | HMH.OPNOTE ---
Date of procedure: 11/04/19 Pre-op Diagnosis:: Term , previous section Post-op Diagnosis:: Term , previous section Procedure performed:: Repeat lower segment transverse section Surgeon:: Ede Vale MD Television Equipment Operator(s):: Svetlana Cortes ENVIRONMENTAL PROTECTION ECONOMIST:: Turner Linder Anesthesia: spinal Estimated blood loss (mL): 600 Clinical Note:: She is a 29-year-old 2 para 1 at 39+ weeks gestational age. She has had a previous section and as result of that was offered repeat lower segment transverse section at term. The risks and benefits of surgery were discussed with the patient prior to surgery. Operative findings:: She delivered a liveborn female child at 7:43 AM on the morning of November 04, 2019. The baby had Apgars of 8 at 1 minute and 9 at 5 minutes. Ovaries and tubes appeared normal. Operative note:: She was taken to the operating room where spinal anesthesia was found be adequate. She was prepped and draped in normal sterile fashion in the supine position with a leftward tilt. A Arteaga catheter was in the bladder. A Pfannenstiel skin incision was made with knife then carried through to the underlying layer of fascia with cautery. The fascia was opened in the midline with cautery and extended laterally using Mayer scissors. Amanda clamps were applied to the superior aspect of the fascial incision which was tented up and the underlying rectus muscles dissected off using cautery. The Timblin clamps were then applied to the inferior aspect of the fascial incision which in a similar fashion was tented up and the underlying rectus muscles dissected off using cautery. The rectus muscles were then in the midline, the peritoneum identified, and entered sharply with Metzenbaum scissors. This incision was then extended superiorly and inferiorly with cautery. We had good visualization of the bladder inferiorly. The bladder peritoneum was then opened in the midline and extended laterally using Metzenbaum scissors. A bladder flap was created digitally. Transverse incision was made through the uterine muscle to the amnion. This incision was then extended laterally using fingers traction. The amnion was entered sharply with knife. There was clear amniotic fluid. The infant's head was then delivered atraumatically. A loose nuchal cord was then reduced. This was followed by the anterior shoulder and the rest of the 's body atraumatically. The oropharynx and nasopharynx were bulb suctioned. We allowed the cord to continue to pulsate for approximately 1 minute since the baby was vigorous. The infant was then handed off to Dr. Chang who assigned Apgars of 8 at 1 minute and 9 at 5 minutes. We then obtained cord blood as well as cord pH. Using gentle traction on the cord and countertraction on the fundus I was able to easily deliver the placenta intact. It had a normal three-vessel cord. The uterus was then cleared of clots and debris . The uterine incision was then closed using running 0 Vicryl suture in a locked fashion. A second layer of the same suture was used to imbricate the first layer. The bladder peritoneum was then closed using running 2-0 Vicryl suture in a locked fashion. There was a small amount of bleeding along the incision and I elected to place a second running 2-0 Vicryl suture in a locked fashion along the peritoneum. The gutters and cul-de-sac were then cleared of clots and debris . Once again hemostasis was assured. The uterus was then returned to the abdominal cavity. I placed a large piece of Surgicel along the incision. The peritoneum was grasped with Mony clamps and closed using running 2-0 Vicryl suture. The rectus muscles were then reapproximated using running 0 Vicryl suture. The fascia was closed using running #1 Vicryl suture. The subcutaneous tissues were then irrigated with warm water followed by closure Jed's fascia using running 2-0 Monocryl sutu
--- NOTE | 2019-11-04 08:19 | HMH.ANESI ---
[facility] Anesthesia Record Part I Intake, IV Amount: 400 Estimated blood loss (mL): 600 Urine output (mL): 325 Blood Products used (#): none Blood Pressure: 102/65 SaO2: 97 Pulse Rate: 78 Respiratory Rate: 16 Temperature: 97.5 F Patient is:: Awake, Stable Stable to PACU at:: 08:15
[2019-11-04 11:31] LABS: Microscopic,Cath URINE MICROSCOPIC (MICROSCOPIC)
[2019-11-04 11:41] LABS: Appearance,Urine/Cath CLEAR (Clear); Bilirubin,Cath Negative (Negative); Blood, Urine/Cath 1+ (Negative); Color,Urine/Cath YELLOW (Yellow); Glucose,Urine/Cath (UA) Negative (Negative); Ketones,Urine/Cath TRACE (Negative); Leukocyte Esterase,Cath Negative (Negative); Nitrate,Cath Negative (Negative); Protein,Urine/Cath Negative (Negative); Urobilinogen,Cath 0.2 EU/dl (0.2)
[2019-11-04 12:17] LABS: Transitional Epi Cells,Ur/Cath OCC #/lpf (0-3); WBC,Urine/Cath Occasional #/hpf (0-3)
--- NOTE | 2019-11-04 14:22 | P.CONPHA_ITS ---
[facility] Pharmacy VTE Monitoring - Patient Demographics Admission date: 11/04/19 Report Date: 11/04/19 Time: 14:22 Allergies/Adverse Reactions: Patient Allergies diphenhydramine [From BENADRYL] Allergy (Unknown, Verified 10/29/19 14:44) Height: 1.52 m Weight: 77.734 kg Patient Problems: Current Active Problems Previous section complicating , antepartum condition or complication (Acute) Single delivery by section (Acute) - VTE Risk Labs: VTE Related Lab Results Hgb 11.4 g/dL (12.2-16.2) L 11/04/19 05:50 Hct 31.9 % (37.0-47.0) L 11/04/19 05:50 Plt Count 249 K/mm3 (142-424) 11/04/19 05:50 BUN 9 mg/dl (7-17) 11/04/19 05:50 Creatinine 0.50 mg/dl (0.52-1.04) L 11/04/19 05:50 Estimated Creat Clear 207 mL/min (50-200) 11/04/19 05:50 - Prophylaxis VTE Prophylaxis Ordered?: Yes Types of VTE Prophylaxis: IPCS Thigh High Location of Applied Device: Bilateral Lower Extremeties
[2019-11-05 03:21] VITALS: BP 135/63; PULSE 88; RESP 18; TEMP 36.9; O2SAT 97
[2019-11-05 06:16] LABS: Hematocrit 26.8 % (37.0-47.0); Hemoglobin 9.5 g/dL (12.2-16.2)
--- NOTE | 2019-11-05 06:46 | P.PN_ITS ---
[facility] Anesthesia Record Part II Discharge Time: 08:45 Destination: Obstetric PACU nurse assessment reviewed?: Yes Patient Condition:: Good Anesthesia Complications:: None Swallowing reflex intact?: Yes Cyanosis?: No Blood Pressure: 117/71 Pulse Rate: 77 Temperature: 98.1 F Mental Status: Alert & Oriented Pain level:: 0 Nausea and/or vomitting:: None Intake, IV Amount: 0 (Normovolemic)
[2019-11-05 06:48] VITALS: BP 117/71; PULSE 77; TEMP 36.7
[2019-11-05 08:00] VITALS: BP 113/75; PULSE 77; RESP 16; TEMP 36.9; O2SAT 97
--- NOTE | 2019-11-05 11:13 | P.PN_ITS ---
Internal Medicine - PN: Subj *Date: 11/05/19 *Time: 11:13 Interval history: She is doing very well 1 day post . Her hemoglobin is stable. She denies any severe pain. She is breast-feeding. Exam Vital signs and Labs for Last 24 Hours: Temp Pulse Resp BP Pulse Ox 98.4 F 77 16 113/75 97 11/05/19 08:00 11/05/19 08:00 11/05/19 08:00 11/05/19 08:00 11/05/19 08:00 Laboratory Results - last 24 hr 11/04/19 07:30: Urine Color Yellow, Urine Appearance Clear, Urine pH 6.0, Ur Specific [place] 1.010, Urine Protein Negative, Urine Glucose (UA) Negative, Urine Ketones Trace, Urine Blood 1+, Urine Nitrate Negative, Urine Bilirubin Negative, Urine Urobilinogen 0.2, Ur Leukocyte Esterase Negative, Urine RBC 3-5, Urine WBC Occasional, Ur Squamous Epith Cells 3-5, Ur Transition Epith Cell Occ, Urine Bacteria None 11/05/19 06:02: Hgb 9.5 L, Hct 26.8 L I & O for Last 24 hours: Intake & Output 11/02/19 11/03/19 11/04/19 11/05/19 11:59 11:59 11:59 11:59 Intake Total 400 / 400 0 / 0 Output Total 325 / 325 300 / 300 Balance 75 / 75 -300 / -300 Weight 171 lb 6 oz - Constitutional no acute distress - *Routine HEENT Exam Head: Present: normocephalic Eye: Present: EOMI, PERRL ENT: Present: mucous membranes moist Assessment and Plan (1) Previous section complicating , antepartum condition or complication Current visit: Yes Status: Acute Category: Surgical Code(s): O34.219 - Maternal care for unspecified type scar from previous delivery (2) Single delivery by section Current visit: Yes Status: Acute Category: Medical Code(s): O82 - Encounter for delivery without indication - Assessment and plan all Dx Assessment and Plan for all problems:: She is doing very well on her first post operative day. She is breast-feeding. Her lochia is normal. We will plan to send her home in 48 hours.
[2019-11-05 19:50] VITALS: BP 118/92; PULSE 71; RESP 18; TEMP 36.8; O2SAT 97
[2019-11-05 23:58] VITALS: BP 114/81; PULSE 77; RESP 18; TEMP 36.7; O2SAT 97
[2019-11-06 03:33] VITALS: BP 133/81; PULSE 84; RESP 18; TEMP 37.1; O2SAT 97
--- NOTE | 2019-11-06 08:22 | HMH.ACPN2 ---
Internal Medicine - PN: Subj *Date: 11/06/19 *Time: 08:22 Interval history: She continues to do well this morning. She is eating and drinking and ambulating. She has more breastmilk today. Her incision is clean and dry. Her lochia is normal. Her pain is well controlled. Exam Vital signs and Labs for Last 24 Hours: Temp Pulse Resp BP Pulse Ox 98.7 F 84 18 133/81 97 11/06/19 03:33 11/06/19 03:33 11/06/19 03:33 11/06/19 03:33 11/06/19 03:33 I & O for Last 24 hours: Intake & Output 11/03/19 11/04/19 11/05/19 11/06/19 11:59 11:59 11:59 11:59 Intake Total 400 / 400 0 / 0 Output Total 325 / 325 300 / 300 Balance 75 / 75 -300 / -300 Weight 171 lb 6 oz - Constitutional no acute distress - *Routine HEENT Exam Head: Present: normocephalic Eye: Present: EOMI, PERRL ENT: Present: mucous membranes moist Assessment and Plan (1) Previous section complicating , antepartum condition or complication Current visit: Yes Status: Acute Category: Surgical Code(s): O34.219 - Maternal care for unspecified type scar from previous delivery (2) Single delivery by section Current visit: Yes Status: Acute Category: Medical Code(s): O82 - Encounter for delivery without indication - Assessment and plan all Dx Assessment and Plan for all problems:: She is doing well today. She is postoperative day 2. We will plan to send her home tomorrow.
[2019-11-07 08:33] VITALS: BP 128/86; PULSE 81; RESP 18; TEMP 36.8; O2SAT 97
--- NOTE | 2019-11-07 08:48 | HMH.DCSUM ---
General - General Admission date:: 11/04/19 Discharge date: 11/07/19 HPI HPI: She is a 29-year-old 2 now para 2 who is 39 and 2 weeks gestational age. She has had a previous section as result of that was offered repeat lower segment transverse section at term. Hospital Course Hospital Course: On November 04, 2019 she underwent a repeat lower segment transverse section. She delivered a liveborn female child at 7:43 AM. The baby weighed 6 pounds 11 ounces and was 19 inches long. She had Apgars of 8 at 1 minute and 9 at 5 minutes. She has done well postoperatively and has remained afebrile throughout her hospitalization. She is eating and drinking and ambulating. She is breast-feeding. Her lochia is normal. She has a positive blood, she is rubella immune and was group B streptococcus negative. Her floorhand is Dr. Chang. She is discharged home to follow-up with me in approximately 2 weeks time. She is had her kel removed and Steri-Strips applied. She was given the usual instructions with respect to limiting her activity, driving and sexual activity. She will continue with her vitamins and iron. She is given a prescription for Percocet 5/325 number 30 tablets. Her condition on discharge is stable and improved. Rhogam Administration: Not Indicated Objective Vital signs: Temp Pulse Resp BP Pulse Ox 98.7 F 84 18 133/81 97 11/06/19 03:33 11/06/19 03:33 11/06/19 03:33 11/06/19 03:33 11/06/19 03:33 no acute distress - *Routine HEENT Exam Head: Present: normocephalic Eye: Present: EOMI, PERRL ENT: Present: mucous membranes moist DS: Diagnosis - Discharge Diagnosis (1) Previous section complicating , antepartum condition or complication Status: Acute (2) Single delivery by section Status: Acute Discharge Plan - Patient Discharge Instructions ACTIVITY: No heavy lifting DIET: continue same diet Additional Instructions: No driving/heavy lifting Drink plenty of fluids Nothing in the vagina for 6 weeks Patient Instructions: Pre-eclampsia, Depression, Hemorrhage, DI for , [facility] Post Discharge Instructions, Preventing the Spread of Coronavirus Discharge Instructions - Follow up Plan Follow up with: Ede Vale MD [Staff Physician] - 11/18/19 11:00 am Disposition: Home, Self-Senior Living Medications: Home Medications Medication Instructions Recorded Confirmed Type prenat.vits,serena,zfm-[id number] 1 tab PO DAILY 05/22/19 11/04/19 History Famotidine [Acid Brush Clearer Surveying] 20 mg PO DAILY 11/04/19 11/04/19 History Ferrous Sulfate 325 mg PO DAILY 11/04/19 11/04/19 History Oxycodone HCl/Acetaminophen 1 tab PO Q4-6H PRN #30 tab 11/07/19 Rx [Percocet 5/325mg tablet] Prescriptions/Medication Reconciliation: New Oxycodone HCl/Acetaminophen [Percocet 5/325mg tablet] 1 tab PO Q4-6H PRN #30 tab PRN Reason: Severe Pain Continued prenat.vits,serena,[id number] 1 tab PO DAILY Ferrous Sulfate 325 mg PO DAILY Famotidine [Acid Brush Clearer Surveying] 20 mg PO DAILY - Problem Reconciliation Problems Reviewed?: Yes
== END 2019-11-07 11:05 | disposition home or self-care (01) | DRG 788 ==
PROVIDERS: Admitting Provider Nurse Practitioner Obstetrics & Gynecology; PCP Family Medicine; Visit Provider Nurse Practitioner Obstetrics & Gynecology
PROC: 10D00Z1 Extraction of Products of Conception, Low, Open Approach (ICD-10-PCS; CPT 59514; principal; 2019-11-04 07:30)
DX: O34.211 Maternal care for low transverse scar from previous cesarean delivery (principal); N85.8 Other specified noninflammatory disorders of uterus; Z3A.39 39 weeks gestation of pregnancy; Z37.0 Single live birth; O69.81X0 Labor and delivery complicated by cord around neck, without compression, not applicable or unspecified
CPT/HCPCS: 59514; 59025; 80048; 80305; 81001; 82800; 85014; 85018; 85025; 86328; 86850; J2405

== ENCOUNTER → 2021-04-26 09:51 | Outpatient (CLI) | payer BC, SELFPAY ==
--- NOTE | 2021-04-26 09:52 | US_ITS ---
FINAL REPORT CLINICAL HISTORY: US OB for DATES FINDINGS: There is a single live intrauterine gestation. A yolk sac is identified. Cardiac activity is confirmed at 160 bpm the right ovary measures up to 3.1 cm. The left ovary measures up to 2.7 cm. The ovaries are unremarkable. ULTRASOUND AGE: 12 weeks 3 days days based on a crown-rump length of 5.8 cm. IMPRESSION: Single living IUP with an ultrasound age of 12 weeks 3 days. Reviewed, Interpreted and Dictated by Azar Novak III, MD Transcribed by Kyle Haddad Authenticated by Azar Novak III, MD on 04/26/2021 12:34:41 PM [facility]
== END ==
PROVIDERS: PCP Family Medicine; Visit Provider Nurse Practitioner Obstetrics & Gynecology
DX: O26.841 Uterine size-date discrepancy, first trimester (principal)
CPT/HCPCS: 76801

== ENCOUNTER → 2021-04-30 15:14 | Outpatient (CLI) | payer BC, SELFPAY ==
[2021-04-30 15:52] LABS: Basophils % 0.3 % (0.1-2.0); Eosinophils # 0.1 K/mm3 (0.0-0.4); Eosinophils % 1.9 % (0.1-12.0); Hematocrit 36.4 % (37.0-47.0); Hemoglobin 12.1 g/dL (12.2-16.2); Lymphocytes % 28.8 % (10-50); Mean Corpuscular HGB Conc 33.4 g/dL (31.8-35.4); Mean Corpuscular Hemoglobin 30.2 pg (27.0-31.2); Mean Corpuscular Volume 90.4 fl (81-99); Mean Platelet Volume 8.1 fl (7.4-10.4); Monocytes # 0.2 K/mm3 (0.1-1.0); Monocytes % 3.5 % (1.7-9.3); Neutrophils # 4.5 K/mm3 (1.8-7.8); Neutrophils % 65.6 % (37.0-80.0); Platelet Count 220 K/mm3 (142-424); Red Blood Count 4.02 M/mm3 (4.20-5.40); Red Cell Distribution Width 13.5 % (11.5-17.5); White Blood Count 6.8 K/mm3 (4.8-10.8)
[2021-05-02 08:12] LABS: Rapid Plasma Reagin Ab Titer Non Reactive (NonRea<1:1)
[2021-05-02 10:18] LABS: HSV 1 IgG, Type Spec <0.91 index (0.00-0.90); Rubella Antibodies, IgG 4.57 index (Immune >0.99)
[2021-05-02 12:48] LABS: HIV Screen 4th Generation wRfx Non Reactive (Non Reactive); Hepatitis B Surface Antigen Negative (Negative); Hepatitis C Antibody 0.1 s/co ratio (0.0-0.9)
== END ==
PROVIDERS: Visit Provider Nurse Practitioner Obstetrics & Gynecology
DX: Z34.90 Encounter for supervision of normal pregnancy, unspecified, unspecified trimester (principal)
CPT/HCPCS: 36415; 85025; 86592; 86695; 86703; 86762; 86790; 86850; 87340; 87380; G0432

== ENCOUNTER → 2021-05-20 17:28 | Outpatient (CLI) | payer BC, SELFPAY | PROVIDERS: Visit Provider Nurse Practitioner Obstetrics & Gynecology | DX: N39.0 Urinary tract infection, site not specified (principal); Z3A.15 15 weeks gestation of pregnancy; B96.20 Unspecified Escherichia coli [E. coli] as the cause of diseases classified elsewhere | CPT/HCPCS: 87086; 87088; 87186 ==

== ENCOUNTER → 2021-06-16 13:04 | Outpatient (CLI) | payer BC, SELFPAY ==
--- NOTE | 2021-06-16 13:06 | US_ITS ---
FINAL REPORT CLINICAL HISTORY: anatomy FINDINGS: There is a single live intrauterine gestation. Presentation is cephalic. The cervix is closed and measures 4.3 cm. Placenta is posterior, grade 1. Cardiac activity is confirmed at 150 bpm. movements are seen throughout the exam. Three-vessel cord with satisfactory umbilical cord insertion. Four-chamber heart is noted. AMNIOTIC FLUID: Appropriate amount. MEASUREMENTS: ULTRASOUND AGE: 19 weeks 2 days. GESTATION AGE: 19 weeks 5 days. ESTIMATED WEIGHT: 288 g GROWTH PERCENTILE: 26% BPD: 4.4 cm corresponding with 19 weeks 2 days. OFD: 5.7 cm corresponding with 19 weeks 5 days. HC: 15.9 cm corresponding with 18 weeks 6 days. AC: 14.2 cm corresponding with 19 weeks 4 days. FL: 3 cm corresponding with 19 weeks 2 days. CEREBELLUM: 1.9 cm corresponding with 19 weeks 5 days. HUMERUS: 2.9 cm corresponding with 19 weeks 2 days. NUCH FOLD: 1.1 mm HC/AC: 1.12 CI: 77% FL/BPD: 68% FL/AC: 21% IMPRESSION: Single living IUP with an ultrasound age of 19 weeks 2 days. Reviewed, Interpreted and Dictated by Roderick Dang MD Transcribed by Najma Carey Authenticated by Roderick Dang MD on 06/16/2021 03:28:18 PM [facility]
== END ==
PROVIDERS: PCP Family Medicine; Visit Provider Nurse Practitioner Obstetrics & Gynecology
DX: Z36.0 Encounter for antenatal screening for chromosomal anomalies (principal); Z3A.20 20 weeks gestation of pregnancy
CPT/HCPCS: 76811

== ENCOUNTER → 2021-08-06 07:32 | Outpatient (CLI) | payer BC, SELFPAY ==
[2021-08-06 07:58] LABS: Glucose,Fasting 89 mg/dl (74-100)
[2021-08-06 09:13] LABS: Glucose 1 Hour 157 mg/dL (74-100)
== END ==
PROVIDERS: PCP Family Medicine; Visit Provider Nurse Practitioner Obstetrics & Gynecology
DX: Z34.90 Encounter for supervision of normal pregnancy, unspecified, unspecified trimester (principal)
CPT/HCPCS: 36415; 82951

== ENCOUNTER 2021-08-14 08:05 | Emergency (ER) | payer BC, SELFPAY ==
[2021-08-14 08:10] VITALS: BP 125/79; PULSE 72; RESP 18; TEMP 36.7; O2SAT 98; BMI 28.5
[2021-08-14 09:25] VITALS: BP 112/88; PULSE 76; RESP 19; TEMP 37; O2SAT 100
--- NOTE | 2021-08-14 09:28 | HMH.EDUTC ---
[facility] [place] Clinical Impression: Acute maxillary sinusitis, unspecified Qualifiers: Recurrence: non-recurrent Qualified Code(s): J01.00 - Acute maxillary sinusitis, unspecified Disposition: Home, Self-Care Condition on Discharge: Good Instructions: DI for Sinusitis Additional Instructions: Start antibiotic patient to take as ordered for a full length of time even if you feel better. Sinus infections do not get better overnight. It may take 2-3 days to notice much improvement so be sure to use conservative measures as discussed for symptoms. Flonase 1 spray each nostril daily to help with nasal congestion, sinus and ear pressure/information Increase fluids Humidifier/vaporizer as needed Tylenol and ibuprofen as needed for fever or pain. If symptoms do not improve or get worse return or be seen in the ER Follow-up with primary care this week Prescriptions: Azithromycin [Zithromax 250mg tab] 250 mg PO DIRECTED #6 tab Transmission Status: Pending to [id number] Referrals: Brice Chang MD [Primary Care Provider] - Time of Disposition: 09:32 Medical Decision Making - Mandeep Inquiry Pt receiving controlled substance: No Vital Signs: 08/14/21 08:10 08/14/21 09:25 Temperature 98.0 F 98.6 F Temperature Source Oral Pulse Rate 76 Pulse Rate [Left Brachial] 72 Respiratory Rate 18 19 Blood Pressure 112/88 Blood Pressure [Left Arm] 125/79 Blood Pressure Mean [Left Arm] 94 Blood Pressure Source [Left Arm] Automatic Cuff Blood Pressure Position [Left Arm] Sitting 02 Sat by Pulse Oximetry 98 Oxygen Delivery Method Room Air [facility] [place] - General Chief complaint: Urgent [facility] Stated complaint: sinus pressure, bilateral ear ache Time Seen by Provider: 08/14/21 09:28 Mode of Arrival: Ambulatory Source of Information: Patient Limitations: No Limitations Description of Symptoms (Recalled from Triage Doc. by RN): PATIENT C/O SINUS PAIN AND EAR PRESSURE X 2 DAYS HEENT Symptoms (Recalled from RN notes): Yes Resp Symptoms (Recalled from RN notes): No Skin Symptoms (Recalled from RN notes): No MS Symptoms (Recalled from RN notes): No Functional Status (Recalled from RN notes): WNL - History of Present Illness Provider Complaint: 31 yr old female presents for sabrina ear pressure, sinsus congestion,sinus pressure and pain for 3 days and worse since last night - Related Data Previous Rx's Medication Instructions Recorded Azithromycin [Zithromax 250mg 250 mg PO DIRECTED #6 tab 08/14/21 tab] Allergies Allergy/AdvReac Type Severity Reaction Status Date / Time diphenhydramine Allergy Unknown Verified 08/11/21 09:46 [From BENADRYL] - Worker's Comp Is this a Worker's Comp case?: No [facility] History - Hepatitis A Screen Attestation statement:: This patient has been screened for Hepatitis A risk factors. I have reviewed the patient's past medical history: Yes Medical History: Reports:: Anxiety, Gastroesophageal Reflux Disease(GERD), Hyperlipidemia Denies:: Depression, Hypertension, Seizures Other Medical History: Reports: Blood Transfusion Reaction Other Surgeries: Yes: , Other Amputation: No Fractures: No Comment: [place] teeth removed - Social History Smoking Status: Never smoker Alcohol Intake: never Alcohol Intake Frequency:: other Substance Use Type: denies use Occupational Status: unemployed Housing: house Household Members: family - Psychiatric History Pschychiatric History:: Reports:: Anxiety Denies:: Depression Family Hx:: No significant family history ROS Obtained: Yes Systems reviewed as appropriate & no additional complaints - Constitutional Constitutional: Reports system reviewed and no additional complaints, except as docu, Denies fever(s) - Eyes Eyes: Reports system reviewed and no additional complaints, except as docu, Denies dry eyes - ENT Ears, Nose, Mouth, and Throat: Reports system reviewed and no additional
== END 2021-08-14 09:47 | disposition home or self-care (01) ==
PROVIDERS: Emergency Provider Nurse Practitioner Family; PCP Family Medicine
DX: J01.00 Acute maxillary sinusitis, unspecified (principal); H92.03 Otalgia, bilateral
CPT/HCPCS: 99212; G0463

== ENCOUNTER 2021-09-25 21:12 | Outpatient (CLI) | payer BC, SELFPAY ==
[2021-09-25 21:23] VITALS: BMI 30.2
[2021-09-25 21:25] VITALS: BP 124/74; PULSE 84; RESP 18; TEMP 36.8; O2SAT 98; BMI 30.2
== END 2021-09-25 22:04 | disposition home or self-care (01) ==
LOC: OBOUT 21:13 → OB 21:15
PROVIDERS: PCP Family Medicine; Visit Provider Obstetrics & Gynecology
DX: O36.8130 Decreased fetal movements, third trimester, not applicable or unspecified (principal); Z3A.34 34 weeks gestation of pregnancy
CPT/HCPCS: 59025; G0463

== ENCOUNTER → 2021-09-28 12:54 | Outpatient (CLI) | payer BC, SELFPAY ==
--- NOTE | 2021-09-28 12:55 | US_ITS ---
FINAL REPORT CLINICAL HISTORY: sga FINDINGS: There is a single live intrauterine gestation. Presentation is breech. The cervix is closed and measures 4.0 cm. Placenta is posterior and grade 1-2. Cardiac activity is confirmed at 140 bpm. Fetus is active. Four-chamber heart is noted. brain and ventricles are unremarkable. Chest and diaphragm are unremarkable. ABDOMEN: Both kidneys are unremarkable. Stomach is unremarkable. SOLANGE: 11 cm in normal MEASUREMENTS: ULTRASOUND AGE: 33 weeks 3 days. GESTATION AGE: 34 weeks 4 days. ESTIMATED WEIGHT: 2127 g GROWTH PERCENTILE: 12% BPD: 8.3 cm consistent with 33 weeks 3 days. OFD: 10.5 cm consistent with 33 weeks 1 days. HC: 29.7 cm consistent with 33 weeks 0 days. AC: 28.6 cm consistent with 32 weeks 5 days. FL: 6.6 cm consistent with 34 weeks 1 days. HC/AC: 1.04 CI: 79% FL/BPD: 80% FL/AC: 23% BREATHIN MOVEMENT: 2 TONE: 2 FLUID VOLUME: 2 BPP SCORE: 8/8 IMPRESSION: Single living IUP with an ultrasound age of 33 weeks 3 days. BPP SCORE: 8/8 Reviewed, Interpreted and Dictated by Azar Novak III, MD Transcribed by Kyle Haddad Authenticated and [facility]
== END ==
PROVIDERS: PCP Family Medicine; Visit Provider Nurse Practitioner Obstetrics & Gynecology
DX: O36.5990 Maternal care for other known or suspected poor fetal growth, unspecified trimester, not applicable or unspecified (principal)
CPT/HCPCS: 76816; 76819

== ENCOUNTER → 2021-10-13 06:47 | Outpatient (CLI) | payer BC, SELFPAY | PROVIDERS: Visit Provider Nurse Practitioner Obstetrics & Gynecology | DX: Z34.90 Encounter for supervision of normal pregnancy, unspecified, unspecified trimester (principal) | CPT/HCPCS: 86403 ==

== ENCOUNTER → 2021-10-27 10:26 | Outpatient (CLI) | payer BC, SELFPAY ==
[2021-10-27 10:45] LABS: Basophils # 0.1 K/mm3 (0-0.2); Basophils % 0.6 % (0.1-2.0); Eosinophils # 0.1 K/mm3 (0.0-0.4); Eosinophils % 1.3 % (0.1-12.0); Hematocrit 32.2 % (37.0-47.0); Hemoglobin 10.6 g/dL (12.2-16.2); Lymphocytes # 1.9 K/mm3 (0.7-4.5); Lymphocytes % 23.9 % (10-50); Mean Corpuscular HGB Conc 33.1 g/dL (31.8-35.4); Mean Corpuscular Hemoglobin 30.7 pg (27.0-31.2); Mean Corpuscular Volume 92.8 fl (81-99); Mean Platelet Volume 9.3 fl (7.4-10.4); Monocytes # 0.4 K/mm3 (0.1-1.0); Monocytes % 5.2 % (1.7-9.3); Neutrophils # 5.3 K/mm3 (1.8-7.8); Neutrophils % 68.9 % (37.0-80.0); Platelet Count 214 K/mm3 (142-424); Red Blood Count 3.47 M/mm3 (4.20-5.40); White Blood Count 7.8 K/mm3 (4.8-10.8)
[2021-10-27 11:09] LABS: Chloride 108 mmol/L (98-107); Sodium 137 mmol/L (136-145)
[2021-10-27 11:10] LABS: Potassium 3.5 mmoL/L (3.5-5.1)
[2021-10-27 11:12] LABS: Alanine Aminotransferase 25 U/L (12-78); Albumin Level 3.1 g/dl (3.5-5.0); Alkaline Phosphatase 170 U/L (38-126); Anion Gap 7.5 mEq/L (5-15); Aspartate Amino Transferase 26 U/L (14-36); Blood Urea Nitrogen 6 mg/dl (7-17); Carbon Dioxide 25 mmol/L (22.0-30.0); Estimated Glomerular Filt Rate 118 ml/min (>60); GFR (African American) 143 ML/MIN (>60)
[2021-10-27 11:13] LABS: Albumin/Globulin Ratio 1.1 (1.1-1.8); Calcium 8.6 mg/dl (8.4-10.2); Globulin 2.7 g/dL (1.3-3.2); Glucose 108 mg/dl (74-100); Total Protein,Serum 5.8 g/dl (6.3-8.2)
[2021-10-27 11:15] LABS: Bilirubin,Total < 0.1 mg/dl (0.2-1.3)
== END ==
PROVIDERS: PCP Family Medicine; Visit Provider Nurse Practitioner Obstetrics & Gynecology
DX: Z01.812 Encounter for preprocedural laboratory examination (principal); Z20.822 Contact with and (suspected) exposure to COVID-19; Z34.90 Encounter for supervision of normal pregnancy, unspecified, unspecified trimester; Z3A.37 37 weeks gestation of pregnancy; N92.0 Excessive and frequent menstruation with regular cycle
CPT/HCPCS: 36415; 80053; 85025; C9803; U0003; U0005

== ENCOUNTER 2021-10-29 05:06 | Inpatient (IN) | payer BC, SELFPAY ==
[2021-10-29] VITALS (7 sets, daily range): BP systolic 115–139; BP diastolic 82–89; PULSE 70–73; RESP 18–20; TEMP 36.4–36.7; O2SAT 96–98; BMI 31.3
[2021-10-29 06:09] LABS: Microscopic, Urine URINE MICROSCOPIC (MICROSCOPIC)
[2021-10-29 06:09] LABS: Coronavirus 19, PCR Not Detected (NotDetected); Influenza A, PCR Not Detected (NotDetected); Influenza B, PCR Not Detected (NotDetected)
[2021-10-29 06:13] LABS: Appearance,Urine CLEAR (Clear); Bilirubin,Urine Negative (Negative); Blood, Urine 3+ (Negative); Color,Urine YELLOW (Yellow); Glucose,Urine (UA) Negative (Negative); Ketones,Urine Negative (Negative); Leukocyte Esterase,Urine Negative (Negative); Nitrate,Urine Negative (Negative); PH,Urine 6.5 (5.0-8.5); Protein,Urine Negative (Negative)
[2021-10-29 06:25] LABS: Bacteria,Urine Trace /lpf; Barbiturates Screen,Urine Negative ng/ml (<200); Squamous Epithelial Cell,Urine Occasional #/hpf (0-5)
[2021-10-29 06:26] LABS: Amphetamine/Metha Screen,Urine Negative ng/ml (<1000); Benzodiazepines Screen,Urine Negative ng/ml (<200)
[2021-10-29 06:27] LABS: Cannabinoid Screen,Urine Negative ng/ml (<50)
[2021-10-29 06:28] LABS: Cocaine Screen,Urine Negative ng/ml (<300); Methadone Screen,Urine Negative ng/ml (<300)
[2021-10-29 06:29] LABS: Opiate Screen,Urine Negative ng/ml (<300); Phencyclidine Screen,Urine Negative ng/ml (<25)
[2021-10-29 07:22] LABS: POC Glucose,Bedside 75 (70-110)
--- NOTE | 2021-10-29 07:25 | EXP.HP ---
History of Present Illness *Admission Date: 10/29/21 *Reason for visit:: She is here for repeat section and bilateral tubal ligation. [facility] Medical History Anxiety Blood transfusion reaction GERD (gastroesophageal reflux disease) Hyperlipidemia Surgical History H/O wisdom tooth extraction History of 2 sections Family History No significant family history Social History Smoking Status: Never smoker alcohol intake: never substance use type: denies use current occupational status: employed Travel in the last 8 weeks: None household members: family housing: house Review of Systems Review of Systems Review of systems:: pertinent systems reviewed and negative unless documented below Meds Home Medications and Allergies Home Medications Medication Instructions Recorded Confirmed Type [id number] 29 mg-folic acid 1 1 each PO DAILY Supplement 08/26/21 10/29/21 History mg-om3 430 mg tablet-capsule,del.rel ferrous sulfate 325 mg (65 mg 325 mg PO DAILY Supplement 10/29/21 10/29/21 History iron) tablet (iron) New Prescriptions to Start Prescriptions: Allergies Allergy/AdvReac Type Severity Reaction Status Date / Time diphenhydramine Allergy Unknown Verified 10/21/21 08:45 [From BENADRYL] Exam Data for Last 24 hours Vital signs and Labs for Last 24 Hours: Temp Pulse Resp BP Pulse Ox 98.1 F 72 18 115/86 98 10/29/21 06:07 10/29/21 06:07 10/29/21 06:07 10/29/21 06:07 10/29/21 06:07 Laboratory Results - last 24 hr 10/29/21 05:45: Urine Color Yellow, Urine Appearance Clear, Urine pH 6.5, Ur Specific [place] 1.020, Urine Protein Negative, Urine Glucose (UA) Negative, Urine Ketones Negative, Urine Blood 3+, Urine Nitrate Negative, Urine Bilirubin Negative, Urine Urobilinogen 1.0, Ur Leukocyte Esterase Negative, Urine RBC 3-5, Ur Squamous Epith Cells Occasional, Urine Bacteria Trace 10/29/21 05:45: Urine Opiates Screen Negative, Urine Methadone Screen Negative, Ur Barbituates Screen Negative, Ur Phencyclidine Scrn Negative, Ur Amphetamines Screen Negative, U Benzodiazepines Scrn Negative, Urine Cocaine Screen Negative, U Marijuana (THC) Screen Negative 10/29/21 05:45: Blood Type A Positive, Antibody Screen Negative 10/29/21 05:50: SARS-CoV-2 (PCR) Not detected, Influenza A Untype (PCR) Not detected, Influenza Type B (PCR) Not detected 10/29/21 07:15: POC Glucose 75 I & O for Last 24 hours: Intake & Output 10/26/21 10/27/21 10/28/21 10/29/21 11:59 11:59 11:59 11:59 Weight 160 lb 4 oz Constitutional Constitutional: no acute distress *Routine HEENT Exam Head: Present normocephalic Eye: Present EOMI and PERRL ENT: Present mucous membranes moist *Routine Neck Exam Neck: Present supple and full ROM *Routine Respiratory Exam Respiratory: Absent accessory muscle use (good air entry bilaterally), wheezes or crackles *Routine Cardiovascular Exam Cardiovascular: Present RRR; Absent murmur *Routine Abdominal Exam Abdominal: Present soft and normoactive bowel sounds; Absent tenderness, rebound, guarding or mass *Routine Rectal Exam Rectal:: deferred *Routine Genitalia Exam Genitalia:: deferred *Routine Extremities Exam Extremities: Present full ROM; Absent cyanosis, edema or calf tenderness *Routine Skin Exam Skin: Present intact (good color) *Routine Neurological Exam Neurological: Present alert and oriented X3 Routine Psychiatric Exam Psychiatric: Present normal affect Detailed Rectal Exam Patient deferred: visual exam and digital exam Detailed Exam Patient deferred: external exam, groin exam and perineal exam Assessment and Plan *Assessment and plan (1) History of 2 sections: Status: Acute Category: Surg
--- NOTE | 2021-10-29 08:50 | EXP.OP.NOTE ---
Date of procedure: 10/29/21 Pre-op Diagnosis:: Term , previous section, desire for sterilization Post-op Diagnosis:: Term , previous section, desire for sterilization, uterine atony Procedure performed:: Repeat lower segment transverse section, bilateral salpingectomy, B-carvalho suture Surgeon:: Ede Vale MD Ammonia Still Operator(s):: Dr. Au MILK DRIER:: Other (Frank Marcial) Anesthesia: spinal Estimated blood loss (mL): 600 Clinical Note:: She is a 31-year-old 3 para 2 at 39 weeks gestational age. She has had 2 previous sections and as result of that was offered repeat lower segment transverse section at term. She also expressed desire for sterilization. The risks and benefits of surgery were discussed with the patient prior to surgery. We discussed the irreversibility of bilateral salpingectomy. Operative findings:: She delivered a liveborn female child at 7:53 AM on the morning of October 29, 2021. The baby weighed 6 pounds 11 ounces. She had Apgars of 9 at 1 minute and 9 at 5 minutes. There was a loose nuchal cord. Ovaries and tubes appeared normal. The uterus was boggy post surgery and we elected to perform a B-carvalho suture. Operative note:: She was taken to the operating room where spinal anesthesia was found be adequate. She was prepped and draped in normal sterile fashion in the supine position with a leftward tilt. A Arteaga catheter was in the bladder. A Pfannenstiel skin incision was made with knife then carried through to the underlying layer of fascia with cautery. The fascia was opened in the midline with cautery and extended laterally using Mayer scissors. [place] clamps were applied to the superior aspect of the fascial incision which was tented up and the underlying rectus muscles dissected off using cautery. The [place] clamps were then applied to the inferior aspect of the fascial incision which in a similar fashion was tented up and the underlying rectus muscles dissected off using cautery. The rectus muscles were then in the midline, the peritoneum identified, and entered sharply with Metzenbaum scissors. This incision was then extended superiorly and inferiorly with cautery. We had good visualization of the bladder inferiorly. We then inserted an Ajit retractor. The bladder peritoneum was then opened in the midline and extended laterally using Metzenbaum scissors. A bladder flap was created digitally. Transverse incision was made through the uterine muscle to the amnion. This incision was then extended laterally using fingers traction. The amnion was entered sharply with knife. There was clear amniotic fluid. The infant's head was then delivered atraumatically. A loose nuchal cord was reduced. This was followed by the anterior shoulder and the rest of the 's body atraumatically. The oropharynx and nasopharynx were bulb suctioned. The baby was vigorous so we allowed the cord to continue to pulsate for approximately 1 minute. The cord is then doubly clamped and cut. The was then handed off to Dr. Chang who assigned Apgars of 9 at 1 minute and 9 at 5 minutes. We then obtained cord blood. Using gentle traction on the cord and countertraction on the fundus I was able to easily deliver the placenta intact. It had a normal three-vessel cord. The uterus was then cleared of clots and debris . The uterine incision was then closed using running 0 Vicryl suture in a locked fashion. A second layer of the same suture was used to imbricate the first layer. There was a small amount of bleeding along the medial aspect of the incision and I elected to place interrupted 2-0 Vicryl [id number] sutures here. The bladder peritoneum was then closed using running 2-0 Vicryl suture in a locked fashion. I placed a large piece of Gelfoam under the bladder flap before I closed it. The gutters and cul-de-sac were then cleared of clots and debris . Once again hemostasis
--- NOTE | 2021-10-29 09:06 | P.PN_ITS ---
[facility] Medical History Anxiety Blood transfusion reaction GERD (gastroesophageal reflux disease) Hyperlipidemia Surgical History H/O wisdom tooth extraction History of 2 sections Family History No significant family history Social History Smoking Status: Never smoker alcohol intake: never substance use type: denies use current occupational status: employed Travel in the last 8 weeks: None household members: family housing: house [facility] Anesthesia Checklist Patient Identification Patient Identification: Arm Band and Family Structural Data Admitted From: Home Planned Operative Procedure/s: Consent for Planned Operative Procedure(s) Verified: Yes Verified Documents: Surgical Consent and History and Physical NPO Status Verified Time NPO: 00:00 Additional verifications Patient : Yes Anesthesia Reactions: No Hx Blood Transfusions: No Blood Transfusion Reaction: No Cephalosporin Allergy: No Airway Assessment C-Spine Mobility Assessed: Yes TMJ Mobility Assessed: Yes Dentition: Good Dentition Neurological Assessment Level of Consciousness: Awake, Alert, Appropriate and Follows Commands Hx Seizures: No Numbness or tingling in extremities: No Genitourinary Assessment 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
--- NOTE | 2021-10-29 09:09 | P.PNANES_ITS ---
[facility] Anesthesia Record Part I Anesthesia Record I Intake, IV Amount: 1,800 Estimated blood loss (mL): 600 Urine output (mL): 0 Blood Products used (#): none Blood Pressure: 138/82 SaO2: 98 Pulse Rate: 73 Respiratory Rate: 20 Temperature: 97.7 F Patient is:: Awake and Stable
--- NOTE | 2021-10-29 10:24 | SUR.OPER ---
[id number], apgars 10/29
--- NOTE | 2021-10-29 10:27 | SUR.PHASEI ---
LATE ENTRY 912 detailed report called to ELOISE Mcgarry RN. 09 transported via bed to OB room. vital signs stable. denies pain. left in stable condition with ELOISE Mcgarry RN at bedside
[2021-10-29 11:28] LABS: Microscopic,Cath URINE MICROSCOPIC (MICROSCOPIC)
[2021-10-29 11:42] LABS: Appearance,Urine/Cath CLEAR (Clear); Bilirubin,Cath Negative (Negative); Blood, Urine/Cath 1+ (Negative); Color,Urine/Cath YELLOW (Yellow); Glucose,Urine/Cath (UA) Negative (Negative); Ketones,Urine/Cath Negative (Negative); Leukocyte Esterase,Cath Negative (Negative); Nitrate,Cath Negative (Negative); Protein,Urine/Cath Negative (Negative); Urobilinogen,Cath 0.2 EU/dl (0.2)
[2021-10-29 12:18] LABS: Squamous Epithelial Ur./Cath Occasional #/hpf (0-5)
--- NOTE | 2021-10-29 12:18 | P.PNANES_ITS ---
[facility] Anesthesia Record Part II Anesthesia Record Part II Discharge Time: 09:18 Destination: Obstetric PACU nurse assessment reviewed?: Yes Patient Condition:: Good Anesthesia Complications:: None Swallowing reflex intact?: Yes Cyanosis?: No Blood Pressure: 135/89 Pulse Rate: 70 Temperature: 97.6 F Mental Status: Alert & Oriented Pain level:: 0 Nausea and/or vomitting:: None Intake, IV Amount: 0
[2021-10-30] VITALS (7 sets, daily range): BP systolic 111–133; BP diastolic 68–85; PULSE 61–94; RESP 16–18; TEMP 36.8–36.9; O2SAT 95–99
[2021-10-30 07:46] LABS: Hematocrit 29.5 % (37.0-47.0); Hemoglobin 10.3 g/dL (12.2-16.2)
--- NOTE | 2021-10-30 09:00 | EXP.PHA.VTE ---
[facility] Pharmacy VTE Monitoring Patient Demographics Admission date: 10/29/21 Report Date: 10/30/21 Time: 09:00 Patient Allergies diphenhydramine [From BENADRYL] Allergy (Unknown, Verified 10/21/21 08:45) Height: 1.52 m Weight: 72.688 kg Current Active Problems (Updated 10/21/21 @ 08:47 by MARTITA Black) Admission for sterilization (Acute) History of 2 sections (Acute) VTE Risk Labs: VTE Related Lab Results Hgb 10.3 g/dL (12.2-16.2) L 10/30/21 07:35 Hct 29.5 % (37.0-47.0) L 10/30/21 07:35 Prophylaxis VTE Prophylaxis Ordered?: Yes Types of VTE Prophylaxis: IPCS Thigh High Location of Applied Device: Bilateral Lower Extremeties
--- NOTE | 2021-10-30 11:09 | EXP.ACUTE.PN ---
Subjective *Date: 10/30/21 *Time: 11:09 Interval history: She is doing well although she does have a spinal headache. We are having her lay flat for the next couple of hours. We are giving her a bolus of fluid. If she continues to have a headache then we will plan a blood patch. Anesthesia has been informed of this. Medical Exam Vital signs and Labs for Last 24 Hours: Temp Pulse Resp BP Pulse Ox 98.2 F 82 17 122/79 99 10/30/21 08:14 10/30/21 08:14 10/30/21 08:14 10/30/21 08:14 10/30/21 08:14 Laboratory Results - last 24 hr 10/29/21 : Urine Color Yellow, Urine Appearance Clear, Urine pH 6.0, Ur Specific [place] 1.010, Urine Protein Negative, Urine Glucose (UA) Negative, Urine Ketones Negative, Urine Blood 1+, Urine Nitrate Negative, Urine Bilirubin Negative, Urine Urobilinogen 0.2, Ur Leukocyte Esterase Negative, Ur Squamous Epith Cells Occasional 10/30/21 07:35: Hgb 10.3 L, Hct 29.5 L I & O for Labs for Last 24 Hours: Intake & Output 10/27/21 10/28/21 10/29/21 10/30/21 11:59 11:59 11:59 11:59 Intake Total 1800 / 1800 0 / 0 Output Total 1999 / 1999 Balance 1800 / 1800 -1999 / -1999 Weight 160 lb 4 oz 160 lb 4 oz Head: Present normocephalic and normal inspection ENT: Present normal exam GI: Present soft and scar (Her incision is clean and dry. It is nontender.); Absent distention or tenderness Assessment and Plan *Assessment and plan (1) Admission for sterilization: Status: Acute Category: Medical Code(s): Z30.2 - Encounter for sterilization (2) History of 2 sections: Status: Acute Category: Surgical Code(s): Z98.891 - History of uterine scar from previous surgery (3) delivery delivered: Status: Acute Category: Medical Code(s): O82 - Encounter for delivery without indication (4) Spinal headache complicating labor and delivery, condition: Status: Acute Category: Medical Code(s): O74.5 - Spinal and epidural anesthesia-induced headache during labor and delivery Assessment and plan all Dx Assessment and Plan All Dx:: She is laying flat right now with a fluid bolus. She will drink extra caffeine. If she continues to have the headache later on this afternoon we will consider a blood patch. We will plan to send her home tomorrow.
[2021-10-31 08:17] VITALS: BP 126/83; PULSE 76; RESP 18; TEMP 36.7; O2SAT 97
--- NOTE | 2021-10-31 09:47 | EXP.DC.SUM ---
General Admission date:: 10/29/21 Discharge date: 10/31/21 HPI HPI HPI: She is a 31-year-old 3 para 2 at 39 weeks gestational age. She has had 2 previous sections and as result of that was admitted for repeat lower segment transverse section at term. She also expressed desire for sterilization. Hospital Course Hospital Course Hospital Course: On October 29, 2021 she underwent a repeat lower segment transverse section bilateral salpingectomy. She delivered a liveborn female child at 7:53 AM. The baby had Apgars of 9 at 1 minute and 9 at 5 minutes. She has done well post operatively and has remained afebrile throughout her hospitalization. She is eating and drinking and ambulating. She did have a spinal headache on her first postoperative day and received a blood patch. She is doing much better now and denies any headache or discomfort. She has a positive blood, she is rubella immune and was group B streptococcus negative. Her toll collector is Dr. Chang. She is discharged home to follow-up with me in approximately 2 weeks time. She will continue with her vitamins and iron. She was given a prescription for Percocet 5/325 number 12 tablets. She was given the usual instructions with respect to limiting her activity, driving and sexual activity. She was given instructions with respect to wound care. Her condition on discharge is stable and improved. Exam Data for Last 24 hours Vital signs and Labs for Last 24 Hours: Temp Pulse Resp BP Pulse Ox 98.1 F 76 18 126/83 97 10/31/21 08:17 10/31/21 08:17 10/31/21 08:17 10/31/21 08:17 10/31/21 08:17 I & O for Last 24 hours: Intake & Output 10/28/21 10/29/21 10/30/21 10/31/21 11:59 11:59 11:59 11:59 Intake Total 1800 / 1800 0 / 0 Output Total 1999 / 1999 Balance 1800 / 1800 -1999 / Weight 160 lb 4 oz 160 lb 4 oz Constitutional Constitutional: no acute distress *Routine HEENT Exam Head: Present normocephalic *Routine Respiratory Exam Respiratory: Present normal respiratory effort *Routine Abdominal Exam Abdominal: Present soft and wound (Her incision is clean and dry) DS: Diagnosis Discharge Diagnosis (1) Admission for sterilization: Status: Acute (2) History of 2 sections: Status: Acute (3) delivery delivered: Status: Acute (4) Spinal headache complicating labor and delivery, condition: Status: Acute Meds Home Medications and Allergies Home Medications Medication Instructions Recorded Confirmed Type [id number] 29 mg-folic acid 1 1 each PO DAILY Supplement 08/26/21 10/29/21 History mg-om3 430 mg tablet-capsule,del.rel ferrous sulfate 325 mg (65 mg 325 mg PO DAILY Supplement 10/29/21 10/29/21 History iron) tablet (iron) oxycodone-acetaminophen 5 mg-325 1 tab PO Q4-6H PRN severe pain. 10/31/21 Rx mg tablet (Percocet) #12 tabs New Prescriptions to Start Prescriptions: oxycodone-acetaminophen [Percocet] Ede Vale Allergies Allergy/AdvReac Type Severity Reaction Status Date / Time diphenhydramine Allergy Unknown Verified 10/21/21 08:45 [From [facility]] Discharge Plan Disposition Patient Disposition: Home, Self-Care Discharge Order Discharge Orders: Discharge Order (Routine); Ordered 10/31/21 Ordered By: Ede Vale Follow up Plan Prescriptions/Medication Reconciliation: New oxycodone-acetaminophen [Percocet] 5-325 mg Tablet 1 tab PO Q4-6H PRN (Reason: severe pain.) Qty: 12 0RF Continued vit [id number] 29-1-430 mg combo pack,tablet and cap,DR 1 each PO DAILY ferrous sulfate [iron] 325 mg (65 mg iron) Tablet 325 mg PO DAILY Problem Reconciliation Problems Reviewed?: Yes Patient Discharge Instructions ACTIVITY: No heavy lifting DIET: continue same diet Additional Instructions: Nothing in the vagina or t
== END 2021-10-31 11:15 | disposition home or self-care (01) | DRG 785 ==
PROVIDERS: Admitting Provider Nurse Practitioner Obstetrics & Gynecology; PCP Family Medicine; Visit Provider Nurse Practitioner Obstetrics & Gynecology
PROC: 10D00Z1 Extraction of Products of Conception, Low, Open Approach (ICD-10-PCS; CPT 59514; principal; 2021-10-29 07:30)
DX: O34.211 Maternal care for low transverse scar from previous cesarean delivery (principal); N85.8 Other specified noninflammatory disorders of uterus; Z3A.39 39 weeks gestation of pregnancy; Z37.0 Single live birth; O62.2 Other uterine inertia; O89.4 Spinal and epidural anesthesia-induced headache during the puerperium; O69.81X0 Labor and delivery complicated by cord around neck, without compression, not applicable or unspecified; Z30.2 Encounter for sterilization
CPT/HCPCS: 59514; 58700; 62273; 59025; 80305; 81001; 82962; 85014; 85018; 86850; 94761; C9290; C9803; G0283; G0463; J2405; U0003; U0005

== ENCOUNTER 2022-03-25 09:24 | Emergency (ER) | payer BC, SELFPAY ==
[2022-03-25 09:30] VITALS: BP 124/74; PULSE 79; RESP 20; TEMP 36.8; O2SAT 98; BMI 27.6
--- NOTE | 2022-03-25 09:47 | EXP.UTC ---
Discharge Plan Disposition Patient Disposition: Home, Self-Care Condition: Good Prescriptions Prescriptions: New polymyxin B sulf-trimethoprim [Polytrim] 10,000 unit- 1 mg/mL drops 2 drp ophthalmic (eye) Q6H 7 Days Qty: 10 0RF Rx Instructions: right eye while awake; do not exceed 6 doses in 24 hours Referrals Follow up/Referrals: Brice Chang MD [Primary Care Provider] - See instructions Activity Restrictions/Add. Instructions Additional Instructions/Restrictions: Wash hands well before and after applying drops to eyes Clean matting with warm water and baby shampoo Follow up with your Eye Doctor if no improvement or any worsening of symptoms Straight to ER if any life threatening symptoms Clinical Impressions Clinical Impression: Conjunctivitis Stand Alone Forms Stand Alone Forms: Work/School Release Instructions Patient Instructions: Conjunctivitis, DI for Conjunctivitis Discharge ED Provider: Dominga Liu Teetee [facility] General Stated complaint: possible pink eye in Rt eye Mode of Arrival: Ambulatory Source of Information: Patient Limitations: No Limitations Time Seen by Provider: 03/25/22 09:47 Description of Symptoms (Recalled from Triage Doc. by RN): PATIENT C/O REDNESS AND DRAINAGE TO RIGHT EYE SINCE THIS MORNING HEENT Symptoms (Recalled from RN notes): Yes Resp Symptoms (Recalled from RN notes): No Skin Symptoms (Recalled from RN notes): No MS Symptoms (Recalled from RN notes): No Functional Status (Recalled from RN notes): WNL History of Present Illness Provider Complaint: Patient states that her daughter had pink eye last week States that she woke up this morning with her right eye matted shut and draining and red so she came in to get it checked Related Data Previous Rx's Medication Instructions Recorded polymyxin B sulfate 10,000 2 drp ophthalmic (eye) Q6H 7 days 03/25/22 unit-trimethoprim 1 mg/mL eye #10 mL drops (Polytrim) Allergies Allergy/AdvReac Type Severity Reaction Status Date / Time diphenhydramine Allergy Unknown Verified 10/21/21 08:45 [From BENADRYL] Worker's Comp Is this a Worker's Comp case?: No [facility] Disclaimer: The information contained in this section may have been updated after the patient was seen, as this information can be updated by other users. Medical History (Updated 03/25/22 @ 09:55 by Dominga Liu APRN) Anxiety Blood transfusion reaction GERD (gastroesophageal reflux disease) Hyperlipidemia Surgical History (Updated 03/25/22 @ 09:38 by Nayely Griffin, RN) H/O wisdom tooth extraction History of 2 sections History of tubal ligation Family History No significant family history Social History (Updated 03/25/22 @ 09:38 by Nayely Griffin, RN) Smoking Status: Never smoker alcohol intake: never substance use type: denies use current occupational status: employed Travel in the last 8 weeks: None household members: family housing: house ROS Obtained: Yes All systems reviewed & no additional complaints except as documented and Yes Systems reviewed as appropriate & no additional complaints except as documented Constitutional Constitutional: Reports system reviewed and no additional complaints, except as documented and Reports as per HPI Eyes Eyes: Reports system reviewed and no additional complaints, except as documented, Reports as per HPI, Reports eye discharge and Reports irritation ENT Ears, Nose, Mouth, and Throat: Reports system reviewed and no additional complaints, except as documented and Reports as per HPI Cardiovascular Cardiovascular: Reports system reviewed and no additional complaints, except as documented and Reports as per HPI Respiratory Respiratory: Reports system reviewed and no additional complaints, except as documented and Reports as per HPI Gastrointestinal Gastrointestingal: Reports system reviewed and no
[2022-03-25 10:00] VITALS: BP 124/74; PULSE 79; RESP 20; TEMP 36.8; O2SAT 98
== END 2022-03-25 10:04 | disposition home or self-care (01) ==
PROVIDERS: Emergency Provider Nurse Practitioner; PCP Family Medicine
DX: H10.9 Unspecified conjunctivitis (principal)
CPT/HCPCS: 99212; 99213; G0463

== ENCOUNTER 2022-05-31 15:54 | Emergency (ER) | payer OTHER, BC, SELFPAY ==
[2022-05-31 16:00] VITALS: BP 121/79; PULSE 69; RESP 18; TEMP 36.7; O2SAT 97; BMI 25.4
--- NOTE | 2022-05-31 16:03 | ECG_ITS ---
APPROVED REPORT Exam: Resting ECG HR:62 bpm ECG Measurements Heart Rate 62 AXES AK 157 P 54 QRSd 115 QRS 59 QT 400 T 39 QTc 405 Conclusion SINUS RHYTHM INCOMPLETE RIGHT BUNDLE BRANCH BLOCK [90+ ms QRS DURATION, TERMINAL R IN V1/V2, 40+ ms S IN I/aVL/V4/V5/V6] BORDERLINE ECG UNCONFIRMED REPORT Electronically signed by : Juve Cevallos MD 06/03/2022 09:37:32
--- NOTE | 2022-05-31 16:23 | HMH.EDGENADL ---
Discharge Plan Disposition Patient Disposition: Home, Self-Care Chief Complaint: PAIN Prescriptions Prescriptions: No Action escitalopram oxalate [Lexapro] 5 mg Tablet 10 mg PO DAILY Referrals Follow up/Referrals: Brice Chang MD [Primary Care Provider] - See instructions Activity Restrictions/Add. Instructions Additional Instructions/Restrictions: Return for pain dizziness headache or any other concerns within the next 8 hours otherwise follow-up with your primary care physician within the next few days Clinical Impressions Clinical Impression: Electric shock Discharge ED Provider: Zachariah Arias General Adult HPI General Chief complaint: PAIN Stated complaint: WC 05/31@1400 sent from work Time Seen by Provider: 05/31/22 16:00 Mode of Arrival: Ambulatory Source of Information: Patient Limitations: No Limitations Description of Symptoms (Recalled from ER Triage Doc. 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 pt states the shock occured on her right mid abdomen area. pt denies any chest pain. History of Present Illness HPI narrative: 32-year-old female presents from after she experienced an electric shock while loading material anterior machine. She does not know anything about what type of machine this is. She says this shock occurred in her right mid lower abdomen. She denies any chest pain shortness of air fever chills nausea vomiting or any other concerns at this time. No other injuries no dizziness did not lose consciousness. Related Data Home Medications Medication Instructions Recorded Confirmed escitalopram oxalate 5 mg tablet 10 mg PO DAILY Depression 05/31/22 05/31/22 (Lexapro) Allergies Allergy/AdvReac Type Severity Reaction Status Date / Time diphenhydramine Allergy Unknown Verified 10/21/21 08:45 [From BENADRYL] [facility] Disclaimer: The information contained in this section may have been updated after the patient was seen, as this information can be updated by other users. Medical History Anxiety Blood transfusion reaction GERD (gastroesophageal reflux disease) Hyperlipidemia Surgical History H/O wisdom tooth extraction History of 2 sections History of tubal ligation Family History Other No significant family history Social History Smoking Status: Never smoker alcohol intake: never substance use type: denies use current occupational status: employed Travel in the last 8 weeks: None household members: family housing: house ROS Obtained: Yes All systems reviewed & no additional complaints except as documented Constitutional Constitutional: Denies fatigue Eyes Eyes: Denies dry eyes ENT Ears, Nose, Mouth, and Throat: Denies dry mouth Cardiovascular Cardiovascular: Denies diaphoresis and Denies dyspnea Respiratory Respiratory: Denies dyspnea Gastrointestinal Gastrointestingal: Denies cramping or hematemesis Genitourinary Female Genitourinary: Denies hematuria Musculoskeletal Musculoskeletal: Denies joint stiffness Integumentary/Breasts Skin/Breast: Denies redness Neurologic Neurologic: Denies confusion Endocrine Endocrine: Denies fatigue Hematologic/Lymphatic Henatologic/Lymphatic: Denies easy bleeding Physical Exam General General appearance: alert and in no apparent distress Eye Eye exam: Present PERRL and EOMI ENT ENT exam: Present normal exam and normal oropharynx Neck Neck exam: Present normal inspection Chest Chest inspection: Present symmetric chest wall rise Respiratory Respiratory exam: Present normal lung sounds bilaterally; Absent respiratory distress Cardiovascular Cardiovascular exam: Present regular rate and normal rhy
[2022-05-31 16:28] LABS: Basophils % 0.3 % (0.1-2.0); Eosinophils # 0.3 K/mm3 (0.0-0.4); Eosinophils % 5.8 % (0.1-12.0); Hematocrit 37.2 % (37.0-47.0); Hemoglobin 12.1 g/dL (12.2-16.2); Lymphocytes # 1.9 K/mm3 (0.7-4.5); Lymphocytes % 39.8 % (10-50); Mean Corpuscular HGB Conc 32.4 g/dL (31.8-35.4); Mean Corpuscular Hemoglobin 28.8 pg (27.0-31.2); Mean Corpuscular Volume 88.9 fl (81-99); Mean Platelet Volume 8.7 fl (7.4-10.4); Monocytes # 0.2 K/mm3 (0.1-1.0); Monocytes % 4.6 % (1.7-9.3); Neutrophils # 2.4 K/mm3 (1.8-7.8); Neutrophils % 49.7 % (37.0-80.0); Platelet Count 185 K/mm3 (142-424); Red Blood Count 4.19 M/mm3 (4.20-5.40); Red Cell Distribution Width 13.3 % (11.5-17.5); White Blood Count 4.8 K/mm3 (4.8-10.8)
[2022-05-31 16:33] LABS: Chloride 105 mmol/L (98-107); Sodium 138 mmol/L (136-145)
[2022-05-31 16:34] LABS: Potassium 3.8 mmoL/L (3.5-5.1)
[2022-05-31 16:36] LABS: Blood Urea Nitrogen 11 mg/dl (7-17); Creatine Kinase 102 U/L (30-135); Creatinine Clearance Estimated 109 mL/min (50-200); Estimated Glomerular Filt Rate 98 ml/min (>60); GFR (African American) 119 ML/MIN (>60)
[2022-05-31 16:37] LABS: Anion Gap 10.8 mEq/L (5-15); Calcium 8.4 mg/dl (8.4-10.2); Carbon Dioxide 26 mmol/L (22.0-30.0); Glucose 87 mg/dl (74-100)
[2022-05-31 16:40] LABS: HCG Qualitative, Serum Negative (Negative)
[2022-05-31 16:54] LABS: Troponin I < 0.01 ng/ml (0.00-0.034)
[2022-05-31 17:33] VITALS: BP 121/79; PULSE 69; RESP 16; TEMP 36.7
== END 2022-05-31 17:35 | disposition home or self-care (01) ==
PROVIDERS: Emergency Provider Emergency Medicine; PCP Family Medicine
DX: T75.4XXA Electrocution, initial encounter (principal)
CPT/HCPCS: 80048; 82550; 84484; 84703; 85025; 93005; 99284; 99285

== ENCOUNTER → 2022-11-18 14:51 | Outpatient (CLI) | payer BC, SELFPAY ==
[2022-11-18 15:13] LABS: Coronavirus 19, PCR Not Detected (NotDetected); Influenza A, PCR Not Detected (NotDetected); Influenza B, PCR Not Detected (NotDetected)
== END ==
LOC: COVID.OUT 14:52
PROVIDERS: PCP Family Medicine; Visit Provider Physician Assistant
DX: Z20.822 Contact with and (suspected) exposure to COVID-19 (principal)
CPT/HCPCS: 87636

== ENCOUNTER 2023-05-27 08:17 | Emergency (ER) | payer BC, SELFPAY ==
[2023-05-27 08:45] VITALS: BP 117/69; PULSE 90; RESP 22; TEMP 37.2; O2SAT 97; BMI 23.0
--- NOTE | 2023-05-27 09:28 | EXP.UTC ---
Discharge Plan Disposition Patient Disposition: Home, Self-Care Condition: Good Prescriptions Prescriptions: New prednisone 10 mg tablet 10 mg PO BID 3 Days Qty: 6 0RF amoxicillin 875 mg tablet 875 mg PO Q12H Qty: 20 0RF Referrals Follow up/Referrals: Brice Chang MD [Primary Care Provider] - See instructions Activity Restrictions/Add. Instructions Additional Instructions/Restrictions: Drink plenty of fluids. Take tylenol or ibuprofen for pain or fever. Take the medications as directed. Follow up with your regular doctor. GO TO THE ER FOR ANY WORSENING SYMPTOMS Clinical Impressions Clinical Impression: Strep pharyngitis Instructions Patient Instructions: Strep Throat, DI for Strep Throat Discharge ED Provider: Conrado Galeas [facility] General Stated complaint: sore throat body ache congestion Mode of Arrival: Ambulatory Source of Information: Patient Limitations: No Limitations Time Seen by Provider: 05/27/23 09:28 Description of Symptoms (Recalled from Triage Doc. by RN): Pt's symptoms are sore throat, congestion, and body aches. HEENT Symptoms (Recalled from RN notes): Yes Resp Symptoms (Recalled from RN notes): No Skin Symptoms (Recalled from RN notes): No MS Symptoms (Recalled from RN notes): No Functional Status (Recalled from RN notes): n.a History of Present Illness Provider Complaint: She states that for the past 2 days she has had sore throat, fever, and malaise. Related Data Previous Rx's Medication Instructions Recorded amoxicillin 875 mg tablet 875 mg PO Q12H #20 tabs 05/27/23 prednisone 10 mg tablet 10 mg PO BID 3 days #6 tabs 05/27/23 Allergies Allergy/AdvReac Type Severity Reaction Status Date / Time diphenhydramine Allergy Unknown Verified 05/27/23 09:16 [From BENADRYL] Worker's Comp Is this a Worker's Comp case?: No [facility] Disclaimer: The information contained in this section may have been updated after the patient was seen, as this information can be updated by other users. Medical History Anxiety Blood transfusion reaction GERD (gastroesophageal reflux disease) Hyperlipidemia Surgical History H/O wisdom tooth extraction History of 2 sections History of tubal ligation Family History Other No significant family history Social History Smoking Status: Never smoker alcohol intake: never substance use type: denies use current occupational status: employed Travel in the last 8 weeks: None household members: family housing: house ROS Obtained: Yes All systems reviewed & no additional complaints except as documented Constitutional Constitutional: Reports chills and Reports fever(s) Eyes Eyes: Denies eye discharge ENT Ears, Nose, Mouth, and Throat: Reports as per HPI Cardiovascular Cardiovascular: Denies chest pain Respiratory Respiratory: Denies chest congestion and Reports cough Gastrointestinal Gastrointestingal: Reports nausea; Denies abdominal pain, constipation, cramping, diarrhea or vomiting Musculoskeletal Musculoskeletal: Denies arthralgias Integumentary/Breasts Skin/Breast: Denies rash Neurologic Neurologic: Denies paresthesias Physical Exam General General appearance: alert and in no apparent distress Head Head exam: atraumatic, normocephalic and normal inspection Eye Eye exam: Present normal appearance, PERRL and EOMI ENT ENT exam: Present mucous membranes moist and normal external ear exam Expanded ENT Exam TM/Canal exam: Bilateral TM: erythema and bulging Nose exam: Absent sinus tenderness Mouth exam: Present normal external inspection; Absent drooling Teeth exam: Present normal inspection Throat exam: Present tonsillar erythema, tonsillomegaly and tonsillar exudate Neck Neck exam: Present normal inspection, full ROM and trachea midline; Absent tenderness, meningismus or lymphadenopathy Chest Chest inspection: Present normal inspection and symmetric chest wall rise; Absent tenderness Respiratory Respiratory exam: Present normal lung sounds bilaterally; Absent respiratory distress, wheezes, stridor or accessory muscle use Cardiovascular Cardiovascular exam: Present regular rate and normal rhythm; Absent systolic murmur or diastolic murmur Abdominal Exam Abdominal exam: Present soft and normal bowel sounds; Absent distention, tenderness, guarding, rebound or rigidity Extremities Exam Extremities exam: Present normal inspection and normal capillary refill; Absent calf tenderness Back Exam Back exam: Present normal inspection and full ROM; Absent tenderness, CVA tenderness (R) or CVA tenderness (L) Neurological Exam Neurological exam: Present alert, oriented X3 and CN II-XII intact Psychiatric Psychiatric exam: Present normal affect and normal mood Skin Skin exam: Present warm, dry, intact and normal color Medical Decision Making Medical Records Medical records reviewed: No I reviewed the patient's medical records. Mandeep Inquiry Pt receiving controlled substance: No Vital Signs: 05/27/23 08:45 Temperature 99.0 F Temperature Source Oral Pulse Rate [Right Radial] 90 Respiratory Rate 22 Blood Pressure [Right Arm] 117/69 Blood Pressure Mean [Right Arm] 85 Blood Pressure Source [Right Arm] Automatic Cuff Blood Pressure Position [Right Arm] Sitting 02 Sat by Pulse Oximetry 97 Oxygen Delivery Method Room Air Lab Data Lab results reviewed: Yes I reviewed the patient's lab results.
[2023-05-27 09:58] LABS: UTC Influenza A Antigen Negative (Negative); UTC Influenza B Antigen Negative (Negative); UTC Strep Screen (Rapid) Positive (Negative)
[2023-05-27 10:22] VITALS: BP 117/69; PULSE 90; RESP 22; TEMP 37.2; O2SAT 97
== END 2023-05-27 10:10 | disposition home or self-care (01) ==
PROVIDERS: Emergency Provider Nurse Practitioner Family; PCP Family Medicine
DX: J02.0 Streptococcal pharyngitis (principal); R07.0 Pain in throat; R50.9 Fever, unspecified; R53.81 Other malaise; K21.9 Gastro-esophageal reflux disease without esophagitis; E78.5 Hyperlipidemia, unspecified
CPT/HCPCS: 87804; 87880; 99212; 99214; G0463

== ENCOUNTER 2024-09-13 17:41 | Emergency (ER) | payer SELFPAY ==
--- OUTSIDE RECORDS SUMMARY | 2023-12-20 07:15 | XMS_ITS ---
Author Organization [facility] Address [address] [facility] [address] [place] [id number] Care Team Providers Care Finish Molder Name Role Phone Bernardo Brice Primary Care Provider Deana Henao Unavailable [phone] Allergies Allergen (clinical drug ingredient) Drug/Non Drug [...] Interpretation: Performing Lab: Notes/Report: Test performed by [employer], [employer] [address] [place] [address] , [address], [place] [address] Wenceslao Akbar MD, Game Producer CLIA: [id number] Sodium 141 135-145 mmol/L Potassium 4.3 3.5-5.3 [...] Interpretation: Performing Lab: Notes/Report: Test performed by [facility] [address] [place] [address] , [address], [place] [address] Wenceslao Akbar MD, Game Producer CLIA: [id number] Erythrocyte Sedimentation Rate (ESR), Automated 2 <26 [...] W/U Status Risk Notes Problem Refractory migraine (244953502) Intractable migraine without status migrainosus, unspecified migraine type (G43.919) Active confirmed Problem Pseudotumor cerebri (G93.2) Active confirmed Vital Signs Blood pressure systolic 112 mm Hg 12/20/19 24 Blood pressure diastolic 70 mm Hg 024 Heart Rate 71 /min 12/20/2023 Weight 126.4 lbs 12/20/2023 Encounters Encounter Location Date Provider Diagnosis [facility] [address] [facility] [address] [place] [phone] 12/20/2023 Deana Henao Intractable migraine without status [...] see a neurologist. She saw neurology at [place] in the past and will call there [...] see a neurologist. She saw neurology at [place] in the past and will call there [...] * RADHA SANTIAGODOB: 3 (34 yo F)Acc No.[id number]:12/20/2023 Progress Notes Patient: RADHA RODRIGUES Provider: CAROL Rothman :1990 A ge:33 Y S ex:Female Date:12/20/2023 Address:[address], [place], [id number] Pcp:Brice Chang Subjective: * Chief Complaints: * [...] order an MRI. She was seen at [facility] previously by neurology around 10 [...] Status: Single. Alcohol: yes, occasional. 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 Recreational drug use: no. Tobacco use other than smoking: yes, vape. * Medications: D iscontinued Cmgpsqcbe-Mvpmcprm-WZ 30-2-10 MG/5ML Syrup 5-10 ml orally 4 [...] mcghee 12/21/2023 10:45:53 AM > faxed to [employer]; CPT code 82005DyyhisDeana etienne 06/27/2024 04:30:30 PM >I do not [...] see a neurologist. She saw neurology at [place] in the past and will call there [...] STREP A ASSAY W/OPTIC, Modifiers: QW , 16476 CBC WITH AUTO DIFF, 60914 VENIPUNCT, ROUTINE* * Follow Up: v ia phone to report test results * Images: Billing Information: * Visit Code: 99386 Office Visit, Est Pt., Level 4. * Procedure Codes: 82961 STREP A ASSAY W/OPTIC. Modifiers: QW 60805 CBC WITH AUTO DIFF. 43793 VENIPUNCT, ROUTINE*. * Electronic signature of CAROL Garza on 09/13/2024 at 05:50 PM EDT Sign off status: Pending * Provider: CAROL Rothman Date: Generated for Leti pham/Rojelio/eTransmitting on: 0 09/13/2024 05:50 PM EDT History and Physical Notes * [...]
[2024-09-13] VITALS (10 sets, daily range): BP systolic 112–152; BP diastolic 57–91; PULSE 71–85; RESP 14–25; TEMP 37–37.1; O2SAT 97–100; BMI 24.4
--- NOTE | 2024-09-13 17:49 | ED_ITS ---
Discharge Plan Disposition Patient Disposition: Home, Self-Care Prescriptions Prescriptions: New ondansetron 4 mg tablet,disintegrating 4 mg PO Q6H PRN (Reason: nausea and vomiting) 4 Days Qty: 16 0RF No Action prednisone 10 mg tablet 10 mg PO BID 3 Days Qty: 6 0RF amoxicillin 875 mg tablet 875 mg PO Q12H Qty: 20 0RF Referrals Follow up/Referrals: Brice Chang MD [Primary Care Provider, Medical] - See instructions Activity Restrictions/Add. Instructions Additional Instructions/Restrictions: Follow-up with your primary care physician this week if symptoms do not improve. Make sure you hydrate well by drinking plenty of fluids, such as water, sugar- free Gatorade, Pedialyte. You are being prescribed Zofran to help with nausea. Take this as prescribed. If you develop any new or worsening symptoms, or if you become concerned for your health for any reason, return to the emergency department for evaluation. Clinical Impressions Clinical Impression: Lightheadedness, Nausea & vomiting Print Language Print Language: Bahamian Discharge ED Provider: Luis M Melendez General Adult HPI <CAROL Rojas - Last Filed: 09/13/24 17:52> General Chief complaint: Weakness Stated complaint: Tunnel vision,shaking,feels like she will pass out Time Seen by Provider: 09/13/24 17:49 Related Data Previous Rx's ?Medication ?Instructions ?Recorded amoxicillin 875 mg tablet 875 mg PO Q12H #20 tabs 04/0 08/13 prednisone 10 mg tablet 10 mg PO BID 3 days #6 tabs 05/27/23 ondansetron 4 mg disintegrating 4 mg PO Q6H PRN nausea and 09/13/24 tablet vomiting 4 days #16 tabs Allergies Allergy/AdvReac Type Severity Reaction Status Date / Time diphenhydramine (From Allergy Unknown Verified 05/27/23 09:16 BENADRYL) <Luis M Melendez MD - Last Filed: 09/14/24 09:55> History of Present Illness HPI narrative: Kath Butt is a 34-year-old female with a history of 3 previous C-sections, tubal who presents to the emergency department for complaints of feeling as if she is going to pass out. Patient states that she has not been feeling well over the last 2 days and had an episode of vomiting yesterday. She states that today, while driving, she felt like she was shaking all over and had tunnel vision . She had to pull her car to the side of the road. She states that she has not had any chest pain but feels like she cannot take a deep breath. She denies any history of blood clots, is not on oral contraceptives, has not had any swelling in her legs. She states that she is currently on her period and does have a couple days of heavy bleeding with every period. She denies any abdominal pain but does report some nausea. [facility] <CAROL Rojas - Last Filed: 09/13/24 17:52> [facility] Disclaimer: The information contained in this section may have been updated after the patient was seen, as this information can be updated by other users. Medical History Anxiety Blood transfusion reaction GERD (gastroesophageal reflux disease) Hyperlipidemia Surgical History H/O wisdom tooth extraction History of 2 sections History of tubal ligation Family History Other No significant family history Social History Smoking Status: Current every day smoker alcohol intake: never substance use type: denies use current occupational status: employed Travel in the last 8 weeks?: None household members: family housing: house Have you lived/traveled outside US in past 30 days?: No Contact w/someone who lives/traveled outside US past 30 days?: No Exposure to someone with infectious disease in past 14 days?: No Do you have a fever (greater than 100.4 F or 38 C)?: No Have you tested positive for COVID-19?: No Exposed to someone with COVID-19 in past 14 days?: No Do you have a sore throat?: No Do you have a cough?: No Do you have any weakness?: No Do you have any diarrhea?: No Are you experiencing any unusual bleeding?: No Do you have any muscle aches/pain?: No Do you have any abdominal pain?: No Are you experiencing loss of taste or smell?: No Other Medical History Have you received the Flu Vaccine for this season: No Have you received the Pneumonia Vaccine: No <CAROL Rojas - Last Filed: 09/13/24 17:52> ROS Obtained: Yes Systems reviewed as appropriate & no additional complaints except as documented Physical Exam <CAROL Rojas - Last Filed: 09/13/24 17:52> General General appearance: alert and in no apparent distress Head Head exam: atraumatic and normal inspection Eye Eye exam: Present normal appearance, PERRL and EOMI ENT ENT exam: Present normal exam, normal oropharynx and mucous membranes moist Neck Neck exam: Present normal inspection, full ROM and trachea midline; Absent lymphadenopathy Chest Chest inspection: Present normal inspection and symmetric chest wall rise Respiratory Respiratory exam: Present normal lung sounds bilaterally; Absent accessory muscle use Cardiovascular Cardiovascular exam: Present regular rate, normal rhythm, normal heart sounds, +S1 and +S2 Abdominal Exam Abdominal exam: Present soft and normal bowel sounds; Absent tenderness, guarding or rebound Extremities Exam Extremities exam: Present normal inspection and full ROM Neurological Exam Neurological exam: Present alert, oriented X3 and CN II-XII intact Psychiatric Psychiatric exam: Present normal affect and normal mood Skin Skin exam: Present warm, dry and normal color Lymphatic Lymphatic Findings: no adenopathy <Luis M Melendez MD - Last Filed: 09/14/24 09:55> Neck Neck exam: Absent lymphadenopathy Respiratory Respiratory exam: Absent respiratory distress or wheezes Medical Decision Making <CAROL Rojas - Last Filed: 09/13/24 17:52> Medical Records Screening: Per USPSTF and CDC recommendations, given the prevalence of disease in our region, it is our hospital?s policy to screen for HIV and viral Hepatitis for all patients aged 18 and over and those with ongoing risk factors. Vital Signs: 09/13/24 17:52 09/13/24 18:00 09/13/24 18:30 Temperature 98.8 F Temperature Source Oral Pulse Rate 85 79 Pulse Rate [Left] 84 Pulse Rate [Orthostatic Lying] Pulse Rate [Orthostatic Sitting] Pulse Rate [Orthostatic Standing] Respiratory Rate 17 19 14 Blood Pressure 127/81 124/83 Blood Pressure [Orthostatic Lying] Blood Pressure [Orthostatic Sitting] Blood Pressure [Orthostatic Standing] Blood Pressure [Right Arm] 152/91 H Blood Pressure Mean 96 Blood Pressure Mean [Right Arm] 111 Blood Pressure Source [Right Arm] Automatic Cuff Blood Pressure Position Blood Pressure Position [Right Arm] Supine 02 Sat by Pulse Oximetry 100 97 99 Oxygen Delivery Method Room Air Room Air Room Air 09/13/24 19:01 09/13/24 19:07 09/13/24 19:08 Temperature Temperature Source Pulse Rate 80 83 79 Pulse Rate [Left] Pulse Rate [Orthostatic Lying] Pulse Rate [Orthostatic Sitting] Pulse Rate [Orthostatic Standing] Respiratory Rate 17 15 14 Blood Pressure 118/57 L 118/73 126/82 Blood Pressure [Orthostatic Lying] Blood Pressure [Orthostatic Sitting] Blood Pressure [Orthostatic Standing] Blood Pressure [Right Arm] Blood Pressure Mean Blood Pressure Mean [Right Arm] Blood Pressure Source [Right Arm] Blood Pressure Position Blood Pressure Position [Right Arm] 02 Sat by Pulse Oximetry 99 100 99 Oxygen Delivery Method 09/13/24 19:09 09/13/24 19:09 09/13/24 19:30 Temperature Temperature Source Pulse Rate 84 71 Pulse Rate [Left] Pulse Rate [Orthostatic Lying] 77 Pulse Rate [Orthostatic Sitting] 78 Pulse Rate [Orthostatic Standing] 81 Respiratory Rate 16 25 H Blood Pressure 133/81 112/79 Blood Pressure [Orthostatic Lying] 118/73 Blood Pressure [Orthostatic Sitting] 126/82 Blood Pressure [Orthostatic Standing] 133/81 Blood Pressure [Right Arm] Blood Pressure Mean Blood Pressure Mean [Right Arm] Blood Pressure Source [Right Arm] Blood Pressure Position Blood Pressure Position [Right Arm] 02 Sat by Pulse Oximetry 99 100 Oxygen Delivery Method 09/13/24 19:45 09/13/24 20:11 Temperature 98.6 F Temperature Source Oral Pulse Rate 77 74 Pulse Rate [Left] Pulse Rate [Orthostatic Lying] Pulse Rate [Orthostatic Sitting] Pulse Rate [Orthostatic Standing] Respiratory Rate 24 14 Blood Pressure 112/79 116/74 Blood Pressure [Orthostatic Lying] Blood Pressure [Orthostatic Sitting] Blood Pressure [Orthostatic Standing] Blood Pressure [Right Arm] Blood Pressure Mean Blood Pressure Mean [Right Arm] Blood Pressure Source [Right Arm] Blood Pressure Position Sitting Blood Pressure Position [Right Arm] 02 Sat by Pulse Oximetry Oxygen Delivery Method Room Air Lab Data Lab Results 09/13/24 18:13: Urine Color Yellow, Urine Appearance Clear, Urine pH 6.0, Ur Specific [place] 1.015, Urine Protein Negative, Urine Glucose (UA) Negative, Urine Ketones Negative, Urine Blood Negative, Urine Nitrate Negative, Urine Bilirubin Negative, Urine Urobilinogen 0.2, Ur Leukocyte Esterase Negative, Urine RBC Occasional, Urine WBC Occasional, Ur Squamous Epith Cells 5-10, Urine Bacteria Trace 09/13/24 18:20: WBC 5.6, RBC 4.27, Hgb 12.6, Hct 37.9, MCV 88.8, MCH 29.5, MCHC 33.2, RDW 12.6, Plt Count 216, MPV 10.2, Neut % (Auto) 66.9, Lymph % (Auto) 25.5, [place] % (Auto) 5.9, Eos % (Auto) 1.3, Baso % (Auto) 0.2, Neut # (Auto) 3.8, Lymph # (Auto) 1.4, [place] # (Auto) 0.3, Eos # (Auto) 0.1, Baso # (Auto) 0.0, D- Dimer 0.53 H, Sodium 139, Potassium 3.6, Chloride 106, Carbon Dioxide 26, Anion Gap 10.6, BUN 14, Creatinine 0.80, Estimated Creat Clear 90, Estimated GFR 83, Est GFR ( Amer) 101, Glucose 103 H, Calcium 9.0, Magnesium 2.0, Total Bilirubin 0.2, AST 31, ALT 16, Alkaline Phosphatase 51, Troponin I < 0.01, Total Protein 7.2, Albumin 4.1, Globulin 3.1, Albumin/Globulin Ratio 1.3, Lipase 47, Serum HCG, Qual Negative, HCV Ab ADENIKE w/Rflx PCR Qn Negative, HIV Ag/Ab Combo Qual Negative 09/13/24 18:20 09/13/24 18:20 Orders (Tests/Meds): ED MEDICATIONS Discontinued Medications Generic Name Dose Route Start Last Admin Trade Name Freq PRN Reason Stop Dose Admin Lactated Ringer's 500 mls @ 999 mls/hr 09/13/24 18:07 09/13/24 18:45 Lactated Ringer's 1000 Ml Bag IV 09/13/24 18:37 999 mls/hr .Q31M ONE Administration Ondansetron HCl 4 mg 09/13/24 18:07 09/13/24 18:45 Ondansetron 4mg/2ml Vial IV 09/13/24 18:08 4 mg ONCE ONE Administration ORDERS Category Date Time Status CXR --portable [XR chest portable] Stat Exams 09/13/24 18:10 Completed CBC w/Auto Diff [Complete Blood Count Auto Diff] Stat Lab 09/13/24 18:20 Completed CMP [Comprehensive Metabolic Panel] Stat Lab 09/13/24 18:20 Completed D-Dimer Stat Lab 09/13/24 18:20 Completed HIV Combo Stat Lab 09/13/24 18:20 Completed Hepatitis C Ab Qual. W/ RFX Stat Lab 09/13/24 18:20 Completed Lipase Stat Lab 09/13/24 18:20 Completed Magnesium Stat Lab 09/13/24 18:20 Completed Serum [HCG Qualitative, Serum] Stat Lab 09/13/24 18:20 Completed Troponin I Stat Lab 09/13/24 18:20 Completed UA [Urinalysis and Microscopic] Stat Lab 09/13/24 18:13 Completed Medical Decision Narrative: In summary patient is a [age, sex] who presents to the emergency department for evaluation of [complaint]. Patient is [hemodynamically stable/unstable] upon arrival, [febrile/afebrile]. [Unremarkable physical exam, nonfocal exam versus focal remarkable exam]. Differential diagnosis includes [DDx]. Initial workup will be conducted with [hematologic labs, imaging, respiratory swab, describe workup]. Initial interventions include [crystalloid bolus, medications, p.o. challenge, etc.] initial workup reviewed by me [hematologic labs are remarkable for... Imaging remarkable for... Urinalysis remarkable for]. Upon repeat evaluation [patient had acceptable resolution of symptoms, had persistent pain for which additional interventions were conducted (describe interventions), tolerated p.o., was ambulatory, etc.]. Given this [patient is appropriate for discharge at this time and will be discharged with a prescription for... The case was discussed with hospital medicine regarding management and they will admit the patient their service for continued evaluation at this time... Etc.] Places where you can increase complexity: I informally interpreted the patient's chest x-ray or CT read and is remarkable for... Documenting what the blanket binder shows with rate and rhythm Consideration of test but deferring. Ex: I considered chest x-ray on this patient however given that they have no oxygen requirement and are clear to auscultation all lung mo will be deferred. Social determinants of health: Given that patient is undomiciled increases complexity. Given that patient has polysubstance abuse compounds all aspects of care <Luis M Melendez MD - Last Filed: 09/14/24 09:55> Mandeep Ricardo Pt receiving controlled substance: No Vital Signs: 09/13/24 17:52 09/13/24 18:00 09/13/24 18:30 Temperature 98.8 F Temperature Source Oral Pulse Rate 85 79 Pulse Rate [Left] 84 Pulse Rate [Orthostatic Lying] Pulse Rate [Orthostatic Sitting] Pulse Rate [Orthostatic Standing] Respiratory Rate 17 19 14 Blood Pressure 127/81 124/83 Blood Pressure [Orthostatic Lying] Blood Pressure [Orthostatic Sitting] Blood Pressure [Orthostatic Standing] Blood Pressure [Right Arm] 152/91 H Blood Pressure Mean 96 Blood Pressure Mean [Right Arm] 111 Blood Pressure Source [Right Arm] Automatic Cuff Blood Pressure Position Blood Pressure Position [Right Arm] Supine 02 Sat by Pulse Oximetry 100 97 99 Oxygen Delivery Method Room Air Room Air Room Air 09/13/24 19:01 09/13/24 19:07 09/13/24 19:08 Temperature Temperature Source Pulse Rate 80 83 79 Pulse Rate [Left] Pulse Rate [Orthostatic Lying] Pulse Rate [Orthostatic Sitting] Pulse Rate [Orthostatic Standing] Respiratory Rate 17 15 14 Blood Pressure 118/57 L 118/73 126/82 Blood Pressure [Orthostatic Lying] Blood Pressure [Orthostatic Sitting] Blood Pressure [Orthostatic Standing] Blood Pressure [Right Arm] Blood Pressure Mean Blood Pressure Mean [Right Arm] Blood Pressure Source [Right Arm] Blood Pressure Position Blood Pressure Position [Right Arm] 02 Sat by Pulse Oximetry 99 100 99 Oxygen Delivery Method 09/13/24 19:09 09/13/24 19:09 09/13/24 19:30 Temperature Temperature Source Pulse Rate 84 71 Pulse Rate [Left] Pulse Rate [Orthostatic Lying] 77 Pulse Rate [Orthostatic Sitting] 78 Pulse Rate [Orthostatic Standing] 81 Respiratory Rate 16 25 H Blood Pressure 133/81 112/79 Blood Pressure [Orthostatic Lying] 118/73 Blood Pressure [Orthostatic Sitting] 126/82 Blood Pressure [Orthostatic Standing] 133/81 Blood Pressure [Right Arm] Blood Pressure Mean Blood Pressure Mean [Right Arm] Blood Pressure Source [Right Arm] Blood Pressure Position Blood Pressure Position [Right Arm] 02 Sat by Pulse Oximetry 99 100 Oxygen Delivery Method 09/13/24 19:45 09/13/24 20:11 Temperature 98.6 F Temperature Source Oral Pulse Rate 77 74 Pulse Rate [Left] Pulse Rate [Orthostatic Lying] Pulse Rate [Orthostatic Sitting] Pulse Rate [Orthostatic Standing] Respiratory Rate 24 14 Blood Pressure 112/79 116/74 Blood Pressure [Orthostatic Lying] Blood Pressure [Orthostatic Sitting] Blood Pressure [Orthostatic Standing] Blood Pressure [Right Arm] Blood Pressure Mean Blood Pressure Mean [Right Arm] Blood Pressure Source [Right Arm] Blood Pressure Position Sitting Blood Pressure Position [Right Arm] 02 Sat by Pulse Oximetry Oxygen Delivery Method Room Air Lab Data Lab Results 09/13/24 18:13: Urine Color Yellow, Urine Appearance Clear, Urine pH 6.0, Ur Specific [place] 1.015, Urine Protein Negative, Urine Glucose (UA) Negative, Urine Ketones Negative, Urine Blood Negative, Urine Nitrate Negative, Urine Bilirubin Negative, Urine Urobilinogen 0.2, Ur Leukocyte Esterase Negative, Urine RBC Occasional, Urine WBC Occasional, Ur Squamous Epith Cells 5-10, Urine Bacteria Trace 09/13/24 18:20: WBC 5.6, RBC 4.27, Hgb 12.6, Hct 37.9, MCV 88.8, MCH 29.5, MCHC 33.2, RDW 12.6, Plt Count 216, MPV 10.2, Neut % (Auto) 66.9, Lymph % (Auto) 25.5, [place] % (Auto) 5.9, Eos % (Auto) 1.3, Baso % (Auto) 0.2, Neut # (Auto) 3.8, Lymph # (Auto) 1.4, [place] # (Auto) 0.3, Eos # (Auto) 0.1, Baso # (Auto) 0.0, D- Dimer 0.53 H, Sodium 139, Potassium 3.6, Chloride 106, Carbon Dioxide 26, Anion Gap 10.6, BUN 14, Creatinine 0.80, Estimated Creat Clear 90, Estimated GFR 83, Est GFR ( Amer) 101, Glucose 103 H, Calcium 9.0, Magnesium 2.0, Total Bilirubin 0.2, AST 31, ALT 16, Alkaline Phosphatase 51, Troponin I < 0.01, Total Protein 7.2, Albumin 4.1, Globulin 3.1, Albumin/Globulin Ratio 1.3, Lipase 47, Serum HCG, Qual Negative, HCV Ab ADENIKE w/Rflx PCR Qn Negative, HIV Ag/Ab Combo Qual Negative Orders (Tests/Meds): ED MEDICATIONS Discontinued Medications Generic Name Dose Route Start Last Admin Trade Name Cesarq PRN Reason Stop Dose Admin Lactated Ringer's 500 mls @ 999 mls/hr 09/13/24 18:07 09/13/24 18:45 Lactated Ringer's 1000 Ml Bag IV 09/13/24 18:37 999 mls/hr .Q31M ONE Administration Ondansetron HCl 4 mg 09/13/24 18:07 09/13/24 18:45 Ondansetron 4mg/2ml Vial IV 09/13/24 18:08 4 mg ONCE ONE Administration ORDERS Category Date Time Status CXR --portable [XR chest portable] Stat Exams 09/13/24 18:10 Completed CBC w/Auto Diff [Complete Blood Count Auto Diff] Stat Lab 09/13/24 18:20 Completed CMP [Comprehensive Metabolic Panel] Stat Lab 09/13/24 18:20 Completed D-Dimer Stat Lab 09/13/24 18:20 Completed HIV Combo Stat Lab 09/13/24 18:20 Completed Hepatitis C Ab Qual. W/ RFX Stat Lab 09/13/24 18:20 Completed Lipase Stat Lab 09/13/24 18:20 Completed Magnesium Stat Lab 09/13/24 18:20 Completed Serum [HCG Qualitative, Serum] Stat Lab 09/13/24 18:20 Completed Troponin I Stat Lab 09/13/24 18:20 Completed UA [Urinalysis and Microscopic] Stat Lab 09/13/24 18:13 Completed ECG Data Tracing #1: I reviewed this ECG and interpreted as documented below: Normal sinus rhythm. No ST elevation ro depression. Non-specific T wave inversions in lead V2 Medical Decision Narrative: Kath Butt is a 34-year-old female with a history of 3 previous C-sections, tubal who presents to the emergency department for complaints of feeling as if she is going to pass out. Patient states that she has not been feeling well over the last 2 days and had an episode of vomiting yesterday. She states that today, while driving, she felt like she was shaking all over and had tunnel vision . She had to pull her car to the side of the road. She states that she has not had any chest pain but feels like she cannot take a deep breath. She denies any history of blood clots, is not on oral contraceptives, has not had any swelling in her legs. She states that she is currently on her period and does have a couple days of heavy bleeding with every period. She denies any abdominal pain but does report some nausea. On arrival, patient is mildly hypertensive, heart rate within normal limits, breathing comfortably on room air with appropriate oxygen saturation, afebrile. Physical exam, stated above, revealed an overall well-appearing female in no distress. Cardiopulmonary exam revealed no murmurs or rubs. No wheezing, rales or rhonchi. Abdomen is soft, nontender and nondistended. Neuroexam is nonfocal, GCS 15. Differential diagnosis includes, but is not limited to: Cardiac arrhythmia, dehydration, electrolyte derangement, hypoglycemia, anemia, UTI, viral gastritis, metabolic derangement such as hypothyroidism, pulmonary embolism, ACS, among others. The most morbid conditions were considered and workup was based on these. Workup in the emergency department included: EKG, CBC, D-dimer, lipase, CMP, troponin, test, urinalysis, magnesium level, chest x-ray. Patient was treated with 500 cc of lactated ringer and 4 mg of IV Zofran. Chest x-ray interpreted by me personally. No focal consolidations, no widening of the mediastinum, no pneumothorax, no pleural effusion. Grossly unremarkable chest x-ray. See final radiology report for additional details. EKG also interpreted by me personally showed normal sinus rhythm. Isolated T wave inversion in V2 but is nonspecific. QTc was normal at 401 see interpretation above. Laboratory studies showed no leukocytosis, no anemia, platelets within normal limits, D-dimer mildly elevated 0.53, however based on YEARS criteria, low concern for pulmonary embolism. Electrolytes within normal limits, no DEBRA, initial troponin less than 0.01. Liver enzymes within normal limits. Negative test. Lipase within normal limits. No evidence of urinary tract infection. Orthostatic vitals were obtained without significant variation in blood pressure or heart rate. On reassessment, patient in improvement in her nausea. Overall she felt better. Is felt that she may have been slightly dehydrated given her recent vomiting.. She was encouraged to continue hydrating and will be given a prescription for Zofran. She was encouraged to follow with her primary care physician next week if symptoms do not improve or to return to the emergency department she has any new or worsening symptoms. All questions were answered. She demonstrated understanding. It is felt that she is appropriate for discharge at this time and patient was subsequently discharged from the emergency department. Critical Care <Luis M Melendez MD - Last Filed: 09/14/24 09:55> Critical Care Time Critical Care Time: No
--- OUTSIDE RECORDS SUMMARY | 2024-09-13 17:50 | XMS_ITS | Patient Health Record ---
Author Organization [facility] Address [address] [facility] 36 [facility] [address] GARY [place] [id number] Care Team Providers Care In Store Banker Name Role Phone Brice Chang Primary Care Provider [phone] Earlene Deana Unavailable [phone] Allergies Allergen (clinical drug ingredient) Drug/Non Drug [...] Interpretation: Performing Lab: Notes/Report: Test performed by [facility] , [address], [place] [address] Wenceslao Akbar MD, Furniture Refinisher CLIA: [id number] Sodium 141 135-145 mmol/L Potassium 4.3 3.5-5.3 [...] Interpretation: Performing Lab: Notes/Report: Test performed by [facility] [address] [place] [address] , [address], [place] [address] Wenceslao Akbar MD, Furniture Refinisher CLIA: [id number] Erythrocyte Sedimentation Rate (ESR), Automated 2 <26 mm/hr MRI : Brain with and without contrast Reviewed date:06/28/2024 09:04:15 AM Interpretation: Performing Lab: Notes/Report: MRI : Brain with and w/o con trast Reviewed date:12/29/2023 05:14:26 PM Interpretation: Performing Lab: Notes/Report: Reason For Referral Reason needs referral to [facility] Neurology Diagnosis 1 Pseudotumor cerebri (G93.2) Referral [facility] Referring Provider First Name Deana Referring Provider Last Name Earlene Referring Provider Speciality Physician Field Account Manager Referred Provider Specialty Neurology General Notes Stacy Ferguson 024 1:21:23 PM > faxed to [place] SchedulingPhyllis Brynn 01/03/2024 9:08:28 AM > patient called; resent to fax number Referral Priority Routine Medications Medication SIG (Take, Route, Fr equency, Duration) Notes Start Date End Date Status Cefdinir 300 MG 1 cap(s) Orally Two times a day; Duration: 10 day(s) 12/20/2023 Active Immunizations Vaccine Route Administration Date Status Comme nts Tetanus Tdap-Adacel (over 7yrs) Unknown 12/08/2005 Admi nistered COVID 19 Moderna Unknown 12/22/2020 Administered COVID 19 Moderna Unknown 01/19/2021 Administered Problems Problem Type SNOMED Code ICD Code Onset Dates Problem Status W/U Status Risk Notes Problem Refractory migraine (969155733) Intractable migraine without status migrainosus, unspecified migraine type (G43.919) Active confirmed Problem Pseudotumor cerebri (G93.2) Active confirmed Vital Signs Heart Rate 71 /min 12/20/2023 Blood pressure diastolic 70 mm Hg 12/20/2023 Blood pressure systolic 112 mm Hg 12/20/2023 Weight 126.4 lbs 12/20/2023 Encounters Encounter Location Date Provider Diagnosis Emily [address] [place] [facility] 36 [facility] [address] [place] [id number] 12/20/2023 Deana Henao Intractable migraine without status migrainosus, unspecified migraine type G43.919 ; Pseudotumor cerebri G93.2 ; Acute pharyngitis due to other specified organisms J02.8 ; Other specified bacterial agents as the cause of diseases classified elsewhere B96.89 and Rash R21 Emily [address] [facility] 36 [facility] [address] [place] [id number] 12/21/2023 Deana Henao Marisol [address] [facility] [address] [place] [id number] 12/29/2023 Deana Henao Pseudotumor cerebri G93.2 Assessments Encounter Date Diagnosis (ICD Code) Assessment [...] see a neurologist. She saw neurology at [facility] in the past and will call there to make an appt. Patient declines acetazolamide because it made her face droop in the past. 12/29/2023 Pseudotumor cerebri (ICD-10 - G93.2) 12/20/2023 Acute pharyngitis due to other specified organisms (ICD-10 - J02.8) Her daugther just had strep. Her strep test is negative but with the headache, sore throat, rash, and left shift on her CBC, will cover with cefdinir. 12/20/2023 Other specified bacterial agents as the cause of diseases classified elsewhere (ICD-10 - B96.89) 12/20/2023 Rash (ICD-10 - R21) Plan Of Treatment No Information Insurance Providers Payer Name Payer Address Payer Phone Subscriber Number Group Number Insured Name Patient Relationship to Insured Coverage Start Date Coverage End Date [facility] [address] [place] [address] [id number] RADHA SANTIAGO Self - patient is the insured Medical (General) History Medical History History ICD Code Depression/anxiety Pseudotumor cerebri Surgical History Surgery Date(Month/Year) C section also 2019 and 2021 2018 Lumbar puncture due to pseudotumor cereb ri
--- OUTSIDE RECORDS SUMMARY | 2024-09-13 17:50 | XMS_ITS | Clinical Summary ---
Author Organization [facility] Address [address] [place] [address] Care Team Providers Care Travelers' Aid Worker Name Role Phone Darius Ramachandran MD Primary Care Provider Un available Allergies No known active allergies Medications No known medications Active Problems No known active problems Family History Medical History Relation Name Comments No Known Problems Father No Known Problems Mother Relation Name Status Comments Father Alive Mother Alive Social History Tobacco Use Types Packs/Day Years Used Date Smoking Tobacco: Every Day Cigarettes Tobacco Cessation:Ready to Q uit: No; Counseling Given: No Alcohol Use Standard Drinks/Week Comments No 0 (1 standard drink = 0.6 oz pur e alcohol) Abuse Screen Answer Date Recorded Unsafe at Home or Work/School Not on file Feels Threatened by Someone? Not on file 12/2022 Does Anyone Keep You from Co ntacting Others or Doint Things Outside the Home? Not on file 11/30/2022 Physical Sign of Abuse Present Not on file 1 Housing Stability Answer Date Recorded Current Living Arrangements Not on file 11/20 Potentially Unsafe Housing Conditions Not on fay e 11/30/2022 Family and Community Support Answer Aurelio e Recorded Help with Day-to-Day Activities Not on file 11/30/2022 Lonely or Isolated Not on file 11/30/2022 Employment Answer Date Recorded Do you want help finding or keeping work or a mat b? Not on file 11/30/2022 Disabilities Answer Date Recorded Concentrating, Remembering, or Making Decisions Difficulty Not on file 11/30/2022 Doing Errands Independently Difficulty Not on fi le 11/30/2022 Education Answer Date Recorded Help with school or training? Not on file Preferred Language Not on file 11/30/2022 Comments No Sex and Gender Information Value Date Recorded Sex Assigned at Not on file Legal Sex Female 10:08 AM EST Gender Identity Not on file Sexual Orientation Not on file Last Filed Vital Signs Vital Sign Reading Time Taken Comments Blood Pressure - - Pulse 90 04/12/2016 3:31 PM EST Temperature 37.3 C (99.1 F) 04/12/2016 3:31 PM EST Respiratory Rate 16 04/12/2016 3:31 PM EST Oxygen Saturation 98% 04/12/2016 3:31 PM EST Inhaled Oxygen Concentration - - Weight 71.7 kg (158 lb) 04/12/2016 3:31 PM EST Height 152.4 cm (5') 04/12/2016 3:31 PM EST Body Mass Index 30.86 04/12/2016 3:31 PM EST Plan of Treatment Health Maintenance Due Date Last Done Comments ANNUAL PHYSICAL 1990 Annual Gynecologic Pelvic an d Breast Exam 1990 HEPATITIS C SCREENING 1992 TDAP/TD VACCINES (1 - Tdap) 2011 COVID-19 Vaccine (2023-2 5 season) 2023 INFLUENZA VACCINE 11/20/2024 Pneumococcal Vaccine 0-49 Aged Out No longer eligible based on patient's age to complete this topic Insurance PPO Member Subscriber Plan / Payer (Ef fective 2010-Present) Name:Kath Butt Relation to Subscriber:Child Name:JACKCAPRICE Date of :1972 Address: [address] [place] [address] Payer ID:[id number] (NAIC) Type:Not on file Address: [facility] [id number] [place] [id number] Care Teams Travelers' Aid Worker Relationship Specialty Start Date End Date Darius Ramachandran MD PCP - General Physical Instructor 02/08/16
--- OUTSIDE RECORDS SUMMARY | 2024-09-13 17:50 | XMS_ITS | Clinical Summary ---
Author Organization [facility] Address [address] [place] [address] Care Team Providers Care Ice Handler Name Role Phone Unavailable Primary Care Provider Unavailabl e Social History Tobacco Use Types Packs/Day Years Used Date Smoking Tobacco: Never Assessed Comments Unknown Sex and Gender Information Value Date Recorded Sex Assigned at Not on file Legal Sex Female 4:48 PM EST Gender Identity Not on file Sexual Orientation Not on file Plan of Treatment Health Maintenance Due Date Last Done Comments Hepatitis B (HepB) Vaccine ( 1 of 3 - 19+ 3-dose series) 2011 Tdap/Td Vaccine >11 yo (1 - Tdap) 2011 Cervical Cancer Screening 2013 HPV Vaccine (1 - 3-dose SCDM series) 2019 Annual SDOH Screening 02/21/2024 Influenza Vaccine (#1) 2024 Haemophilus Influenzae Type B (Hib) Vaccine Aged Out No longer eligible b ased on patient's age to complete this topic Hepatitis A (HepA) Vaccine Aged Out N o longer eligible based on patient's age to complete this topic Meningococcal ACWY Aged Out No longer eligible based on patient's age to complete this topic Pneumococcal Vaccines 6-49 yo Risk Aged Out No longer eligible based on patient's age to complete this topic Polio (IPV) Aged Out No longer eligi ble based on patient's age to complete this topic Rotavirus (RV) Vaccine Aged Out No lo nger eligible based on patient's age to complete this topic
--- NOTE | 2024-09-13 17:51 | ECG_ITS ---
APPROVED REPORT Exam: Resting ECG HR:82 bpm ECG Measurements Heart Rate 82 AXES IL 158 P 69 QRSd 110 QRS 83 QT 362 T 67 QTc 401 Conclusion SINUS RHYTHM INCOMPLETE RIGHT BUNDLE BRANCH BLOCK [90+ ms QRS DURATION, TERMINAL R IN V1/V2, 40+ ms S IN I/aVL/V4/V5/V6] BORDERLINE ECG Electronically signed by : RASHMI PARRISH, 09/15/2024 07:28:57
--- NOTE | 2024-09-13 17:52 | PC.NURSE ---
FSBS 129. RN Notified
--- NOTE | 2024-09-13 18:10 | XR_ITS ---
PROCEDURE INFORMATION: Exam: XR Chest Exam date and time: 09/13/2024 7:45 PM Age: 34 years old Clinical indication: Shortness of breath; Additional info: SOB TECHNIQUE: Imaging protocol: Radiologic exam of the chest. Views: 1 view. COMPARISON: No relevant prior studies available. FINDINGS: Lungs: Unremarkable. No consolidation. Pleural spaces: Unremarkable. No pleural effusion. No pneumothorax. Heart/Mediastinum: Unremarkable. No cardiomegaly. Bones/joints: Unremarkable. IMPRESSION: No acute findings.
[2024-09-13 18:20] LABS: Microscopic, Urine URINE MICROSCOPIC (MICROSCOPIC)
[2024-09-13 18:24] LABS: Bilirubin,Urine Negative (Negative); Color,Urine YELLOW (Yellow); Glucose,Urine (UA) Negative (Negative); Ketones,Urine Negative (Negative); Leukocyte Esterase,Urine Negative (Negative); PH,Urine 6.0 (5.0-8.5); Protein,Urine Negative (Negative); Specific Gravity, Urine 1.015 (1.005-1.030); Urobilinogen,Urine 0.2 EU/dl (0.2)
[2024-09-13 18:26] LABS: Hematocrit 37.9 % (37.0-47.0); Hemoglobin 12.6 g/dL (12.2-16.2); Immature Granulocytes % 0.2 %; Mean Corpuscular HGB Conc 33.2 g/dL (31.8-35.4); Mean Corpuscular Hemoglobin 29.5 pg (27.0-31.2); Mean Corpuscular Volume 88.8 fl (81-99); Nucleated Red Blood Cells % 0 %; Platelet Count 216 K/mm3 (142-424); Red Blood Count 4.27 M/mm3 (4.20-5.40); Red Cell Distribution Width-SD 40.9 fL; White Blood Count 5.6 K/mm3 (4.8-10.8)
[2024-09-13 18:39] LABS: Alanine Aminotransferase 16 U/L (12-78); Albumin Level 4.1 g/dl (3.5-5.0); Albumin/Globulin Ratio 1.3 (1.1-1.8); Alkaline Phosphatase 51 U/L (38-126); Anion Gap 10.6 mEq/L (5-15); Aspartate Amino Transferase 31 U/L (14-36); Bilirubin,Total 0.2 mg/dl (0.2-1.3); Blood Urea Nitrogen 14 mg/dl (7-17); Calcium 9.0 mg/dl (8.4-10.2); Carbon Dioxide 26 mmol/L (22.0-30.0); Chloride 106 mmol/L (98-107); Creatinine Clearance Estimated 90 mL/min (50-200); Creatinine,Serum 0.80 mg/dl (0.52-1.04); Estimated Glomerular Filt Rate 83 ml/min (>60); GFR (African American) 101 ML/MIN (>60); Globulin 3.1 g/dL (1.3-3.2); Glucose 103 mg/dl (74-100); Lipase 47 U/L (23-300); Magnesium 2.0 mg/dl (1.6-2.3); Potassium 3.6 mmoL/L (3.5-5.1); Sodium 139 mmol/L (136-145); Total Protein,Serum 7.2 g/dl (6.3-8.2)
[2024-09-13 18:43] LABS: D-Dimer 0.53 ug/mL (0.0-0.5)
[2024-09-13] MEDS: LACTATED RINGERS 1000ML 500 ML 999 ML IV (18:45)
[2024-09-13] MEDS: ONDANSETRON 4MG/2ML VIAL 4 MG IV (18:45)
[2024-09-13 18:50] LABS: Troponin I < 0.01 ng/ml (0.00-0.034)
[2024-09-13 19:28] LABS: RBC,Urine Occasional #/hpf (0-3); WBC,Urine Occasional #/hpf (0-3)
[2024-09-13 19:29] LABS: Bacteria,Urine Trace /lpf
[2024-09-13 19:42] LABS: HCG Qualitative, Serum Negative (Negative)
[2024-09-13 20:00] LABS: Hepatitis C Ab Qual. W/ RFX NEGATIVE (Negative)
== END 2024-09-13 20:12 | disposition home or self-care (01) ==
PROVIDERS: Emergency Provider Student in an Organized Health Care Education/Training Program; PCP Family Medicine
DX: R11.2 Nausea with vomiting, unspecified (principal); R42 Dizziness and giddiness
CPT/HCPCS: 71045; 80053; 81001; 83690; 83735; 84484; 84703; 85025; 85378; 86803; 87389; 93005; 96374; 99284; J2405; J7120

== ENCOUNTER 2024-09-20 14:08 | Outpatient (CLI) | payer SELFPAY ==
--- OUTSIDE RECORDS SUMMARY | 2023-12-20 07:15 | XMS_ITS ---
[facility] [address] [facility] [address] [place] [id number] Care Team Providers Care Geospatial Information Scientist Name Role Phone Bernardo Brice Primary Care Provider Deana Henao Unavailable [phone] Allergies Allergen (clinical drug ingredient) Drug/Non Drug Allergy documented on EMR Reaction Allergy Type Onset Date Status diphenhydramine Benadryl Allergy anaphylaxis Drug Allergy Active Results Component Value Reference Range Notes Rapid Strep- Inhouse Reviewed date:12/20/2023 02:55:51 PM Interpretation: Performing Lab: Notes/Report: strep test Neg CBC Venipuncture (in house) Reviewed date:12/20/2023 02:55:58 PM Interpretation: Performing Lab: Notes/Report: wbc 6.5 3.5 - 10 lymph 13.4% 15 - 50 mid 3.8% 2 - 15 gran 82.8% 35 - 80 rbc 4.05 3.5 - 5.5 hgb 12.1 11.5 - 16.5 hct 36.3 35 - 55 mcv 89.6 75 - 100 mch 30.0 25 - 35 mchc 33.4 31 - 38 platlet 174 100 - 400 P-Comprehensive Metabolic Pa aaron (CMP) Reviewed date:12/21/2023 01:12:59 PM Interpretation: Performing Lab: Notes/Report: Test performed by [employer], [employer] [address] [place] [address] , [address], [place] [address] Wenceslao Akbar MD, Entertainer Or Variety Artist CLIA: [id number] Sodium 141 135-145 mmol/L Potassium 4.3 3.5-5.3 mmol/L Chloride 107 97-108 mmol/L CO2 27 22-32 mmol/L Glucose 100 65-99 mg/dL BUN 10 6-20 mg/dL Creatinine 0.55 0.50-1.00 mg/dL Calcium 8.7 8.6-10.4 mg/dL eGFR by Creatinine 125 >59 mL/min/1.73m2 Protein 6.2 6.0-8.3 g/dL Albumin 4.2 3.5-5.3 g/dL Alkaline Phosphatase 49 35-121 IU/L ALT (SGPT) 22 <5-47 IU/L AST (SGOT) 18 <5-40 IU/L Bilirubin, Total 0.3 <0.2-1.2 mg/dL A/G Ratio 2.1 1.1-2.5 P-Sed Rate (ESR) Reviewed date:12/21/2023 01:13:07 PM Interpretation: Performing Lab: Notes/Report: Test performed by [facility] [address] [place] [address] , [address], [place] [address] Wenceslao Akbar MD, Entertainer Or Variety Artist CLIA: [id number] Erythrocyte Sedimentation Rate (ESR), Automated 2 <26 mm/hr MRI : Brain with and without contrast Reviewed date:06/28/2024 09:04:15 AM Interpretation: Performing Lab: Notes/Report: REASON FOR VISIT migraine face swollen Medications Medication SIG (Take, Route, Fr equency, Duration) Notes Start Date End Date Status Cefdinir 300 MG 1 cap(s) Orally Two times a day; Duration: 10 day(s) 12/20/2023 Active Problems Problem Type SNOMED Code ICD Code Onset Dates Problem Status W/U Status Risk Notes Problem Refractory migraine (911380276) Intractable migraine without status migrainosus, unspecified migraine type (G43.919) Active confirmed Problem Pseudotumor cerebri (G93.2) Active confirmed Vital Signs Blood pressure systolic 112 mm Hg 12/20/19 24 Blood pressure diastolic 70 mm Hg 024 Heart Rate 71 /min 12/20/2023 Weight 126.4 lbs 12/20/2023 Encounters Encounter Location Date Provider Diagnosis [facility] [address] [facility] [address] [place] [id number] 12/20/2023 Deana Henao Intractable migraine without status migrainosus, unspecified migraine type G43.919 ; Pseudotumor cerebri G93.2 ; Acute pharyngitis due to other specified organisms J02.8 ; Other specified bacterial agents as the cause of diseases classified elsewhere B96.89 and Rash R21 Assessments Encounter Date Diagnosis (ICD Code) Assessment Notes Treatment Notes Treatment Clinical Notes Section Notes 12/20/2023 Intractable migraine without status migrainosus, unspecified migraine type (ICD-10 - G43.919) Gave a nurtec in the office. 12/20/2023 Pseudotumor cerebri (ICD-10 - G93.2) I spoke with the Retina office. They recommend an MRI for the patient with contrast and they will make an appt to check her retina, but feel she needs to see a neurologist. She saw neurology at [facility] in the past and will call there to make an appt. Patient declines acetazolamide because it made her face droop in the past. 12/20/2023 Acute pharyngitis due to other specified organisms (ICD-10 - J02.8) Her daugther just had strep. Her strep test is negative but with the headache, sore throat, rash, and left shift on her CBC, will cover with cefdinir. 12/20/2023 Other specified bacterial agents as the cause of diseases classified elsewhere (ICD-10 - B96.89) 12/20/2023 Rash (ICD-10 - R21) Plan Of Treatment Medication Medication Name Sig Start Date Stop Date Notes Cefdinir 300 MG 1 cap(s) Orally Two times a day; Duration: 10 day(s) 12/20/2023 Treatment Notes Assessment Notes Intractable migraine without status migrainosus, unspecified migraine type Gave a nurtec in the office. Pseudotumor cerebri I spoke with the Ret mirela office. They recommend an MRI for the patient with contrast and they will make an appt to check her retina, but feel she needs to see a neurologist. She saw neurology at [facility] in the past and will call there to make an appt. Patient declines acetazolamide because it made her face droop in the past. Acute pharyngitis due to oth er specified organisms Her daugther just had strep. Her strep t est is negative but with the headache, sore throat, rash, and left shift on her CBC, will cover with cefdinir. Next Appt Details Follow Up: via phone to repo rt test results, Reason: Progress Notes * RADHA SANTIAGODOB: 3 (34 yo F)Acc No.[id number]:12/20/2023 Progress Notes Patient: RADHA RODRIGUES Provider: CAROL Rothman :1990 A ge:33 Y S ex:Female Date:12/20/2023 Address:[address], [place], [id number] Pcp:Brice Chang Subjective: * Chief Complaints: * 1 . Migraine face swollen. * HPI: N eurology: The pt is here today with c/o migraine headache. Pt states she woke up this morning with it and rates the pain 8/10 on the pain scale. She has had headaches off and on for the past few weeks. She has a history of pseudotumor cerebri. She went to see the eye doctor and they felt she needed to see a retina specialist due to swelling around the optic nerve. She states she has not heard from the retina specialist but the eye doctor is concerned and thought the retina specialist would order an MRI. She was seen at [facility] previously by neurology around 10 years ago and had to have a lumbar puncture with CSF drained. 33 year old female presents with c/o headache. * ROS: D ERMATOLOGY: no R richard. n o H jagruti. G ASTROENTEROLOGY: no N ausea. n o V omiting. n o D iarrhea.? U ROLOGY: no D ifficulty urinating. n o B lood in urine. * Medical History: D epression/anxiety, Pseudotumor cerebri. * Surgical History: C section also 2019 and 2021 2018, Lumbar puncture due to pseudotumor cerebri . * Family History: F ather: alive. M other: alive. P aternal Grand Father: alive, diagnosed with Cancer.?Paternal Grand Mother: alive. M aternal Grand Father: alive, family history unknown . M aternal Grand Mother: , diagnosed with Cancer. PGF -Lung cancer MGM - breast cancer. * Social History: C URRENT TOBACCO USE: No . C affeine: yes, frequency: 1 soda per day. Marital Status: Single. Alcohol: yes, occasional. 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 Recreational drug use: no. Tobacco use other than smoking: yes, vape. * Medications: D iscontinued Cvqxcdfiz-Ilyixovt-ML 30-2-10 MG/5ML Syrup 5-10 ml orally 4 times a day, prn , Medication List reviewed and reconciled with the patient * Allergies: B enadryl Allergy: anaphylaxis. Objective: * Vitals: W t:126.4, Temp:98.2, BP:112/70, HR:71, Nurse:GUSTABO. * Examination: G eneral Examination: General Appearance: Does not appear to feel well, sitting in a dark room. H EENT: sclera and conjunctiva clear, PERRLA, TM's normal, translucent.?Oral cavity: some erythema of the pharynx. N michell: s upple, no lymphadenopathy. Chest: n ormal shape and expansion. H eart: R SR. L ungs: c lear to auscultation. A bdomen: bowel sounds present, soft and nontender. N eurologic Exam: alert and oriented, normal cranial nerves II-XII sensory & motor WNL, no cerebellar signs. S kin: fine erythematous rash on the arms, legs, trunk, and back. P eripheral pulses: n ormal (2+) bilaterally. E xtremities: n o leg edema. Assessment: * Assessment: 1. I ntractable migraine without status migrainosus, unspecified migraine type - G43.919 (Primary) 2 . P seudotumor cerebri - G93.2 3 . A cute pharyngitis due to other specified organisms - J02.8 4 . O ther specified bacterial agents as the cause of diseases classified elsewhere - B96.89 5 . R richard - R21 Plan: * Treatment: Value Reference Range A /G Ratio 2.1 1.1-2.5 - * A lbumin 4.2 3.5-5.3 - g/dL * A lkaline Phosphatase 49 35-121 - IU/L * A LT (SGPT) 22 <5-47 - IU/L * A ST (SGOT) 18 <5-40 - IU/L * B ilirubin, Total 0.3 <0.2-1.2 - mg/dL * B UN 10 6-20 - mg/dL * C alcium 8.7 8.6-10.4 - mg/dL * C hloride 107 97-108 - mmol/L * C O2 27 22-32 - mmol/L * C reatinine 0.55 0.50-1.00 - mg/dL * G lucose 100 H 65-99 - mg/dL * P otassium 4.3 3.5-5.3 - mmol/L * S odium 141 135-145 - mmol/L * P rotein 6.2 6.0-8.3 - g/dL * e GFR by Creatinine 125 >59 - mL/min/1.73m2 * Deana Henao 12/21/2023 1 :12:55 PM > see TE ?LAB: P-Sed Rate (ESR) (Collection Date & Time - 12/20/2023 10:56 AM)* Value Reference Range E rythrocyte Sedimentation Rate (ESR), Automated 2 <26 - mm/hr * Deana Henao 12/21/2023 1 :13:03 PM > see TE ?LAB: Rapid Strep- Inhouse (Collection Date & Time - 12/20/2023)* Value Reference Range s trep test Neg * Jossie Copeland 12/20/2023 11:46: 52 AM > , Provider reviewed results while patient in office.Deana Henao 12/20/2023 2:55:47 PM > ?LAB: CBC Venipuncture (in house) (Collection Date & Time - 12/20/2023)* Value Reference Range w bc 6.5 3.5 - 10 * l ymph 13.4% 15 - 50 * m id 3.8% 2 - 15 * g ran 82.8% 35 - 80 * r bc 4.05 3.5 - 5.5 * h gb 12.1 11.5 - 16.5 * h ct 36.3 35 - 55 * m cv 89.6 75 - 100 * m ch 30.0 25 - 35 * m chc 33.4 31 - 38 * p latlet 174 100 - 400 * Naomi Del Toro 12/20/2023 12 :04:39 PM > , Provider reviewed results while patient in office.Deana Henao 12/20/2023 2:55:54 PM > ?Imaging: MRI : Brain with and without contrast (Performed Date - 12/27/2023)* Deana Henao 12/20/2023 1 2:23:09 PM > needs SHIRA, if they can't do it here quickly, [facility] can go to [facility] 12/21/2023 10:45:53 AM > faxed to [facility] [employer]; CPT code [id number] etienne 06/27/2024 04:30:30 PM >I do not see a reportBarbara Zuniga 06/27/2024 05:11:24 PM > it's a duplicate order, this has alreaady been addressed.Deana Henao 06/28/2024 09:03:49 AM >duplicate order Notes: Gave a nurtec in the office. ??2.?Pseudotumor cerebri? Notes: I spoke with the Retina office. They recommend an MRI for the patient with contrast and theywill make an appt to check her retina, but feel she needs to see a neurologist. She saw neurology at [facility] in the past and will call there to make an appt. Patient declines acetazolamide because it made her face droop in the past.??3.?Acute pharyngitis due to other specified organisms? Start Cefdinir Capsule, 300 MG, 1 cap(s), Orally, Two times a day, 10 day(s), 20 Capsule, Refills 0.?? Notes: Her daugther just had strep. Her strep test is negative but with the headache, sore throat, rash, and left shift on her CBC, will cover with cefdinir.?? * Procedure Codes: 8 7880 STREP A ASSAY W/OPTIC, Modifiers: QW , 26465 CBC WITH AUTO DIFF, 38532 VENIPUNCT, ROUTINE* * Follow Up: v ia phone to report test results * Images: Billing Information: * Visit Code: 60718 Office Visit, Est Pt., Level 4. * Procedure Codes: 72885 STREP A ASSAY W/OPTIC. Modifiers: QW 80787 CBC WITH AUTO DIFF. 57218 VENIPUNCT, ROUTINE*. * Electronic signature of CAROL Garza on 09/20/2024 at 02:12 PM EDT Sign off status: Pending * Provider: CAROL Rothman Date: Generated for Leti pham/Rojelio/eTransmitting on: 0 09/20/2024 02:12 PM EDT History and Physical Notes * HPI (History of Present Illness) Category Sub-Category Detail Notes Category Not es Neurology headache Examination Category Sub-Category Detail Notes Category Not es General Examination HEENT: sclera and c onjunctiva clear, PERRLA, TM's normal, translucent Heart: RSR Lungs: clear to auscultatio n Abdomen: bowel sounds present , soft and nontender Extremities: no leg edema General Appearance: Does not appear to f eel well, sitting in a dark room Skin: fine erythematous ra sh on the arms, legs, trunk, and back Neurologic Exam: alert and oriented, normal cranial nerves II-XII sensory & motor WNL, no cerebellar signs Neck: supple, no lymphaden opathy Oral cavity: some erythema of the pharynx Peripheral pulses: normal (2+) bilatera lly Chest: normal shape and exp ansion
--- OUTSIDE RECORDS SUMMARY | 2024-09-16 11:15 | XMS_ITS ---
Author Organization Emily Address [address] [facility] [address] [place] Fitzgerald [phone] Care Team Providers Care Silo Painter Name Role Phone Brice Chang Primary Care Provider Allergies Allergen (clinical drug ingredient) Drug/Non Drug Allergy documented on EMR Reaction Allergy Type Onset Date Status diphenhydramine Benadryl Allergy anaphylaxis Drug Allergy Active Results Component Value Reference Range Notes P-TSH (Not yet reviewed by amparo cat) Interpretation:0.52, low normal, holter pending Performing Lab: Notes/Report: Test performed by [facility] [address] , [address], [place] [address] Wenceslao Akbar MD, District Superintendent CLIA: [id number] TSH 0.52 0.43-5.25 mU/L REASON FOR VISIT [facility] ER f/u Vital Signs Blood pressure systolic 114 mm Hg 09/17/19 25 Blood pressure diastolic 70 mm Hg 025 Heart Rate 84 /min 09/16/2024 Height 60 in 09/16/2024 Weight 125.2 lbs 09/16/2024 BMI 24.45 kg/m2 09/16/2024 Encounters Encounter Location Date Provider Diagnosis [place] [address] [facility] [address] [place] [phone] 09/16/2024 Brice Chang Pre-syncope R55 Assessments Encounter Date Diagnosis (ICD Code) Assessment Notes Treatment Notes Treatment Clinical Notes Section Notes 09/16/2024 Pre-syncope (ICD-10 - R55) ER reports including physician note, labs and radiology reports reviewed in office today Plan Of Treatment Treatment Notes Assessment Notes Pre-syncope ER reports including physician note, labs and radiology reports reviewed in office today Pending Test Test Name Order Date Holter Monitor- 48 hour 09/16/2024 P-TSH 09/16/2024 Next Appt Details Follow Up: via phone to repo rt progress, Reason: Progress Notes * RADHA SANTIAGODOB: 3 (34 yo F)Acc No.[id number]:09/16/2024 Patient: RADHA RODRIGUES Provider: Yaneth Chang M.D. :1990 A ge:34 Y S ex:Female Date:09/16/2024 Address:[facility] [address], [place], [id number] Subjective: * Chief Complaints: * 1 . [facility] ER f/u. * HPI: H PI: 34 year old female presents with c/o Here for follow up on:?09/13/2024 [facility] ER visit. Pt went to er for weakness, lightheadedness, nausea and vomiting. Pt states that she is still just not feeling right. * Medical History: D epression/anxiety, Pseudotumor cerebri. * Surgical History: C section also 2019 and 2021 2018, Lumbar puncture due to pseudotumor cerebri . * Hospitalization/Major Diagno stic Procedure: Cielo maddox Past Hospitalization. * Family History: F ather: alive. M other: alive. P aternal Grand Father: alive, diagnosed with Cancer.?Paternal Grand Mother: alive. M aternal Grand Father: alive, family history unknown . M aternal Grand Mother: , diagnosed with Cancer. PGF -Lung cancer MGM - breast cancer. * Medications: D iscontinued Cefdinir 300 MG Capsule 1 cap(s) Orally Two times a day , Medication List reviewed and reconciled with the patient * Allergies: B enadryl Allergy: anaphylaxis. Objective: * Vitals: W t: 125.2, Temp: 98.6, BP: 114/70, HR: 84, Nurse: pe, Ht: 60, BMI:24.45. * Examination: C ardiology: General Appearance: p leasant, NAD. H EENT: u nremarkable. H eart sounds: R RR, normal S1, S2. L ungs: c lear, no rales or wheezes.?Extremities: n o leg edema. Assessment: * Assessment: 1. P re-syncope - R55 (Primary) Plan: * Treatment: Value Reference Range T SH 0.52 0.43-5.25 - mU/L ?Imaging: Holter Monitor- 48 hour* Stacy Ferguson 09/20/2024 02:05 :00 PM EDT > STAT!! Notes: ER reports including physician note, labs and radiology reports reviewed in office today ? * Follow Up: v ia phone to report progress * Images: Billing Information: * Visit Code: 95286 Office Visit, Est Pt., Level 4. * Procedure Codes: * Electronic signature of Steffi Chang MD on 09/20/2024 at 02:12 PM EDT Sign off status: Pending * Provider: Yaneth Chang M.D. Date: 0 09/16/2024 Generated for Ingridi vero/Rojelio/eTransmitting on: 0 09/20/2024 02:12 PM EDT History and Physical Notes * HPI (History of Present Illness) Category Sub-Category Detail Notes Category Not es HPI Here for follow up on: 5 [facility] ER visit. Pt went to er for weakness, lightheadedness, nausea and vomiting. Pt states that she is still just not feeling right Examination Category Sub-Category Detail Notes Category Not es Cardiology Lungs: clear, no rales or wheezes HEENT: unremarkable Heart sounds: RRR, normal S1, S2 Extremities: no leg edema General Appearance: pleasant, NAD
--- OUTSIDE RECORDS SUMMARY | 2024-09-20 14:12 | XMS_ITS | Clinical Summary ---
Author Organization [facility] Address [address] [place] [address] Care Team Providers Care Program Dir Name Role Phone Unavailable Primary Care Provider [...]
--- OUTSIDE RECORDS SUMMARY | 2024-09-20 14:12 | XMS_ITS | Encounter Summary ---
Author Organization [facility] ([place], [place], [place], [place]) Address [address] [place] [address] Care Team Providers Care Machine Stapler Name Role Phone Kerry Allen MD Unavailable [phone] Reason for Referral * Consultation (Routine) - Closed Specialty Diagnoses / Procedures Referred By Ana Paula estes Referred To Contact Neurology Diagnoses Pseudotumor cerebri Intractable migraine with status migrainosus, unspecified migraine type Deana Henao PA [address] [place] [address] Phone: tel: fax: [facility] Neurology [place] [address] [place] [address] Phone: tel: fax: Referral ID Status Reason Start Date Expiration Date V isits Requested Visits Authorized [id number] Closed Specialty Services Required 01/04/2024 01/03/2025 1 1 Encounter Details Date Type Department Care Team (Late st Contact Info) Description 01/04/2024 Outside Orders [facility]rology [place] [address] [place] [address] Deana Henao PA [address] [place] [address] Pseudotumor cerebri (Primary Dx); Intractable migraine with status migrainosus, unspecified migraine type Social History Tobacco Use Types Packs/Day Years Used Date Smoking Tobacco: Never Assessed Comments Unknown Sex and Gender Information Value Date Recorded Sex Assigned at Not on file Legal Sex Female 4:36 PM CDT Gender Identity Not on file Sexual Orientation Not on file documented as of this encounter Plan of Treatment Scheduled Referrals Name Type Priority Associated Diagnoses Orde r Schedule Ambulatory referral to Neurology Outpatient Referral Routine Pseudotumor cerebri Intractable migraine with status migrainosus, unspecified migraine type Ordered: 01/04/2024 documented as of this encounter Visit Diagnoses Diagnosis Pseudotumor cerebri- Primary Benign intracranial hypertension Intractable migraine with status migrainosus, unspecified migraine type documented in this encounter Care Teams Machine Stapler Relationship Specialty Start Date End Date Kerry Allen MD [address] [facility] [address] [place] [address] Neurology 01/25/24 documented as of this encounter
--- OUTSIDE RECORDS SUMMARY | 2024-09-20 14:12 | XMS_ITS | Referral Summary ---
Author Organization [facility] ([place], [place], [place], [place]) Address [address] [place] [address] Care Team Providers Care Superintendent Drilling And Production Name Role Phone Kerry Allen MD Unavailable [phone] Allergies Active Allergy Reactions Criticality Noted Date Comments Diphenhydramine Anaphylaxis High 10/21/2021 Medications nortriptyline (PAMELOR) 10 MG capsuleIndicatio ns:Intractable migraine with status migrainosus, unspecified migraine type 1 tab po qhs x 1 week then 2 tabs po qhs x 1 week then 3 tabs po qhs for migraine. 90 capsule 5 01/25/2024 Active rizatriptan (Maxalt) 10 MG tabletIndication s:Intractable migraine with status migrainosus, unspecified migraine type Take 1 tablet (10 mg total) by mouth as needed (at onset of migraine, may repeat q2h x 1) Do NOT exceed thirty (30) mg in 24 hours.. 9 tablet 6 01/25/2024 Active Active Problems No known active problems Social History Tobacco Use Types Packs/Day Years Used Date Smoking Tobacco: Former Cigarettes Smokeless Tobacco: Never Alcohol Use Standard Drinks/Week Comments Yes 0 (1 standard drink = 0.6 oz pur e alcohol) Comments Unknown Sex and Gender Information Value Date Recorded Sex Assigned at Not on file Legal Sex Female 4:36 PM CDT Gender Identity Not on file Sexual Orientation Not on file Last Filed Vital Signs Vital Sign Reading Time Taken Comments Blood Pressure 119/80 01/25/2024 1:08 PM EST Pulse 80 01/25/2024 1:08 PM EST Temperature - - Respiratory Rate - - Oxygen Saturation - - Inhaled Oxygen Concentration - - Weight 54.2 kg (119 lb 8 oz) 01/25/2024 1:08 PM EST Height 152.4 cm (5') 01/25/2024 1:08 PM EST Body Mass Index 23.34 01/25/2024 1:08 PM EST Plan of Treatment Not on file Insurance BLUE CROSS/BLUE SHIELD Care Teams Superintendent Drilling And Production Relationship Specialty Start Date End Date Kerry Allen MD [address] [facility] [address] [place] [address] Neurology 01/25/24
--- OUTSIDE RECORDS SUMMARY | 2024-09-20 14:12 | XMS_ITS | Clinical Summary ---
Author Organization [facility] Address [address] [place] [address] Care Team Providers Care Engineering Technology Instructor Name Role Phone Darius Ramachandran MD Primary [...] to Subscriber:Child Name:JACKCAPRICE Date of :1970 Address: [address] [place] [address] Payer ID:[id number] (NAIC) Type:Not on file Address: [facility] [address] [place] [id number] Care Teams Engineering Technology Instructor Relationship Specialty Start Date End Date Darius Ramachandran MD PCP - General Drainage Design Coordinator 02/08/16
--- OUTSIDE RECORDS SUMMARY | 2024-09-20 14:12 | XMS_ITS | Patient Health Record ---
[facility] [address] [facility] [address] [facility] [address] [place] [id number] Care Team Providers Care Equipment Engineering Technician Name Role Phone Brice Chang Primary Care Provider [phone] Troy Henaoa Unavailable [phone] Allergies Allergen (clinical drug ingredient) Drug/Non Drug [...] Interpretation: Performing Lab: Notes/Report: Test performed by [employer], Bleacher Report [facility] , [address], [place] [address] Wenceslao Akbar MD, Pin Game Machine Inspector CLIA: [id number] Sodium 141 135-145 mmol/L Potassium 4.3 3.5-5.3 [...] Interpretation: Performing Lab: Notes/Report: Test performed by [facility] [address] [place], [place] [address] [address] , [address], [place] [address] Wenceslao Akbar MD, Pin Game Machine Inspector CLIA: [id number] Erythrocyte Sedimentation Rate (ESR), Automated 2 <26 mm/hr MRI : Brain with and without contrast Reviewed date:06/28/2024 09:04:15 AM Interpretation: Performing Lab: Notes/Report: P-TSH (Not yet reviewed by amparo cat) Interpretation:0.52, low normal, holter pending Performing Lab: Notes/Report: Test performed by [facility] [address] [place] [address] , [address], [place] [address] Wenceslao Akbar MD, Pin Game Machine Inspector CLIA: [id number] TSH 0.52 0.43-5.25 mU/L MRI : Brain with and w/o con trast Reviewed date:12/29/2023 05:14:26 PM Interpretation: Performing Lab: Notes/Report: Reason For Referral Reason needs referral to [facility] Neurology Diagnosis 1 Pseudotumor cerebri (G93.2) Referral Organization [facility] Referring Provider First Name Deana Referring Provider Last Name Earlene Referring Provider Speciality Physician Returned Goods Repairer Referred Provider Specialty Neurology General Notes Stacy Ferguson 024 1:21:23 PM > faxed to [facility] Phyllis Gomez Brynn 01/03/2024 9:08:28 AM > patient called; resent to fax number Referral Priority Routine Immunizations Vaccine Route Administration Date Status Comme nts COVID 19 Moderna Unknown 12/22/2020 Administered COVID 19 Moderna Unknown 01/19/2021 Administered Tetanus Tdap-Adacel (over 7yrs) Unknown 12/08/2005 Admi nistered Problems Problem Type SNOMED Code ICD Code Onset Dates Problem Status W/U Status Risk Notes Problem Intractable migraine without status migrainosus, unspecified migraine type (G43.919) Active confirmed Problem Pseudotumor cerebri (69386420) Pseudotumor cerebri (G93.2) Active confirmed Vital Signs Heart Rate 84 /min 09/16/2024 Blood pressure diastolic 70 mm Hg 09/16/2024 Height 60 in 09/16/2024 Blood pressure systolic 114 mm Hg 09/16/2024 Weight 125.2 lbs 09/16/2024 BMI 24.45 kg/m2 09/16/2024 Encounters Encounter Location Date Provider Diagnosis [facility] [address] [facility] [address] [place] [id number] 12/20/2023 Deana Crowdy Intractable migraine without status migrainosus, unspecified migraine type G43.919 ; Pseudotumor cerebri G93.2 ; Acute pharyngitis due to other specified organisms J02.8 ; Other specified bacterial agents as the cause of diseases classified elsewhere B96.89 and Rash R21 [facility] [address] [facility] [address] [place] [id number] 09/16/2024 Brice Lockridge Pre-syncope R55 [facility] [address] [facility] [address] [place] [id number] 12/21/2023 Deana Vinniedy [facility] [address] [place] [facility] [address] [place] [id number] 12/29/2023 Deana Crowmilvia Pseudotumor cerebri G93.2 Assessments Encounter Date Diagnosis [...] see a neurologist. She saw neurology at [facility] in the past and will call there to make an appt. Patient declines acetazolamide because it made her face droop in the past. 12/29/2023 Pseudotumor cerebri (ICD-10 - G93.2) 09/16/2024 Pre-syncope (ICD-10 - R55) ER reports including physician note, labs and radiology reports reviewed in office today 12/20/2023 Acute pharyngitis due to other specified organisms (ICD-10 - J02.8) Her daugther just had strep. Her strep test is negative but with the headache, sore throat, rash, and left shift on her CBC, will cover with cefdinir. 12/20/2023 Other specified bacterial agents as the cause of diseases classified elsewhere (ICD-10 - B96.89) 12/20/2023 Rash (ICD-10 - R21) Plan Of Treatment Pending Test Test Name Order Date Holter Monitor- 48 hour 09/16/2024 P-TSH 09/16/2024 Insurance Providers Payer Name Payer Address Payer Phone Subscriber Number Group Number Insured Name Patient Relationship to Insured Coverage Start Date Coverage End Date LINDA OLMEDO [employer] [facility] [address] [place] [address] [id number] RADHA SANTIAGO Self - patient is the insured Medical (General) History Medical History History ICD Code Depression/anxiety Pseudotumor cerebri Surgical History Surgery Date(Month/Year) C section also 2019 and 2021 2018 Lumbar puncture due to pseudotumor cereb ri
--- OUTSIDE RECORDS SUMMARY | 2024-09-20 14:12 | XMS_ITS | Clinical Summary ---
Author Organization [employer] ([place], [place], [place], [place]) Address [address] [place] [address] Care Team Providers Care Banking Paralegal Name Role Phone Kerry Allen MD Unavailable [phone] Allergies Active Allergy Reactions Criticality Noted Date [...] Active Active Problems No known active problems Family History Medical History Relation Name Comments Breast cancer Other Relation Name Status Comments Other Social History Tobacco Use Types Packs/Day Years [...] 01/25/2024 1:08 PM EST Plan of Treatment Health Maintenance Due Date Last Done Comments Depression Screening (12+) 2004 HIV Screening 2007 Hepatitis C Screening 2010 Pap Smear 2013 DTAP/TDAP/TD VACCINES (2 - T d or Tdap) 12/09/2015 12/08/2005 COVID-19 VACCINE (2023-2 5 season) 2023 01/19/2021, 12/22/2020 Influenza Vaccine (#1) 2024 Tobacco Cessation Counseling and Screening (12+) 01/24/2025 01/25/2024 Pneumococcal Vaccine: 0-49 Years Aged Out No longer eligible b ased on patient's age to complete this topic Insurance BLUE CROSS/BLUE SHIELD Care Teams Banking Paralegal Relationship Specialty Start Date End Date Kerry Allen MD [address] [facility] [address] [place] [address] Neurology 01/25/24
== END 2024-09-20 23:59 | disposition home or self-care (01) ==
PROVIDERS: PCP Family Medicine; Visit Provider Family Medicine
DX: I49.1 Atrial premature depolarization (principal); R55 Syncope and collapse
CPT/HCPCS: 93225; 93227